=== PATIENT | male | born 1955 | race Caucasian/White ===

== ENCOUNTER → 2024-06-23 09:02 | Outpatient (REF) | payer BC, SELFPAY ==
[2024-06-23 09:59] LABS: % Basophils 0.4 % (0-2); % Eosinophils 3.6 % (0-6); % Immature Granulocytes 1.5 % (0-0.5); % Lymphocytes 19.3 % (20.5-51.1); % Monocytes 8.9 % (1.7-9.3); % Neutrophils 66.3 % (42.2-75.2); Absolute Eosinophils 0.3 10^3/uL (0-0.7); Absolute Immature Granulocytes 0.1 10^3/uL (0-0.05); Absolute Lymphocytes 1.3 10^3/uL (1.2-3.4); Absolute Monocytes 0.6 10^3/uL (0.1-0.6); Absolute Neutrophils 4.5 10^3/uL (1.4-6.5); Hematocrit 44.3 % (39.0-52.0); Hemoglobin 15.3 g/dL (13.0-18.0); Mean Corp Hgb Conc. 34.5 g/dL (33.0-37.0); Mean Corpuscular Hgb 30.5 pg (27.0-31.0); Mean Corpuscular Volume 88.2 fL (80.0-94.0); Mean Platelet Volume 9.8 fL (7.4-10.4); Nucleated Red Blood Cells % 0 % (-); Platelet Count 258 10^3/uL (130-400); Red Blood Cell Count 5.02 10^6/uL (4.70-6.10); White Blood Cell Count 6.9 10^3/uL (4.8-10.8)
[2024-06-23 10:38] LABS: Blood Urea Nitrogen 20 mg/dl (9-20); Calcium 9.1 mg/dl (8.4-10.2); Carbon Dioxide 30 mmol/L (22-30); Chloride 97 mmol/L (98-107); Glucose 100 mg/dl (70-99); Potassium 4.7 mmol/L (3.5-5.1); Sodium 137 mmol/L (135-145); eGFR > 60.00
== END ==
LOC: RCS 09:02
PROVIDERS: ATTENDING PHYSICIAN Orthopaedic Surgery Hand Surgery; FAMILY PHYSICIAN Family Medicine
DX: Z01.818 Encounter for other preprocedural examination (principal)
CPT/HCPCS: 36415; 80048; 85025; 93005

== ENCOUNTER 2024-07-30 21:15 | Inpatient (IN) | payer OTHER, SELFPAY ==
[2024-07-30 16:42] VITALS: BP 138/81
[2024-07-30 17:14] LABS: % Basophils 0.3 % (0-2); % Eosinophils 3.5 % (0-6); % Immature Granulocytes 0.6 % (0-0.5); % Lymphocytes 14.1 % (20.5-51.1); % Monocytes 8.4 % (1.7-9.3); % Neutrophils 73.1 % (42.2-75.2); Absolute Eosinophils 0.3 10^3/uL (0-0.7); Absolute Immature Granulocytes 0.1 10^3/uL (0-0.05); Absolute Lymphocytes 1.2 10^3/uL (1.2-3.4); Absolute Monocytes 0.7 10^3/uL (0.1-0.6); Absolute Neutrophils 6.4 10^3/uL (1.4-6.5); Hematocrit 41.8 % (39.0-52.0); Hemoglobin 14.8 g/dL (13.0-18.0); Mean Corp Hgb Conc. 35.4 g/dL (33.0-37.0); Mean Corpuscular Hgb 29.3 pg (27.0-31.0); Mean Corpuscular Volume 82.8 fL (80.0-94.0); Mean Platelet Volume 9.8 fL (7.4-10.4); Nucleated Red Blood Cells % 0 % (-); Platelet Count 281 10^3/uL (130-400); Red Blood Cell Count 5.05 10^6/uL (4.70-6.10); Red Cell Dist. Width 12.9 % (11.5-14.5); White Blood Cell Count 8.7 10^3/uL (4.8-10.8)
[2024-07-30 17:17] LABS: ALT (SGPT) 25 U/L (0-50); AST (SGOT) 26 U/L (17-59); Albumin 4.5 g/dl (3.5-5.0); Alkaline Phosphatase 85 U/L (38-126); Blood Urea Nitrogen 20 mg/dl (9-20); Calcium 9.8 mg/dl (8.4-10.2); Carbon Dioxide 30 mmol/L (22-30); Chloride 97 mmol/L (98-107); Glucose 94 mg/dl (70-99); Potassium 4.3 mmol/L (3.5-5.1); Sodium 138 mmol/L (135-145); Total Bilirubin 1.5 mg/dl (0.2-1.3); Total Protein 6.7 g/dl (6.3-8.2); eGFR > 60.00
[2024-07-30 18:04] LABS: Urine Albumin 3+ (Neg - Trace); Urine Bilirubin Negative (Negative); Urine Character Bloody (Clear); Urine Color Red; Urine Glucose Negative (Negative); Urine Ketone Trace (Negative); Urine Leukocyte Negative (Negative); Urine Nitrite Negative (Negative); Urine Occult Blood 4+ (Negative); Urine Urobilinogen Negative (Neg - 1+); Urine pH 6.5 (5.0-9.0)
[2024-07-30 18:11] LABS: Urine Red Blood Cell >100 /HPF (0-2)
--- NOTE | 2024-07-30 18:35 | ED.GENMED ---
History of Present Illness
General
Chief Complaint: Male Genito-Urinary Symptoms
Source: patient
Exam Limitations: none
Time Seen by Provider: 07/30/24 17:54
History of Present Illness
History of Present Illness:
This is a 69 year old male that comes in with c/o blood in his urine. States that this just started a couple of hour ago. States that he has right rotator cuff surgery and just started back on his Xarelto on the as he has atrial fib. Denies
any fever, chills, chest pain, SOB, abd pain, nausea, vomiting, diarrhea, headache, dizziness, urinary burning or frequency.
Past History
Past History
ED Past Medical History: Arrthythmia (Atrial fib), CHF, GERD, HTN, Hypercholesterolemia and Other (Back and neck pain, Sleep apnea, Diverticulosis, )
ED Past Surgical History: Cardiac (Ablation for atrial fibrillation 2010, Heart surgery) and Orthopedic (Carpal tunnel, Ulner nerve left shoulder, Right shoulder rotator cuff)
Patient has exhibited threatening behavior?: No
PSI?: No
Social History
Tobacco: Non-smoker
Alcohol: Occasional
Personal:
Living: with family
Family History
Family History: Other (Father with A. fib and pacemaker, mother with hypertension, sister with diabetes)
Review of Systems
Review of Systems
All Other Systems: ROS reviewed and negative except as documented in HPI and ROS
Constitutional: Reports no symptoms; Denies fever or chills
EENT: Reports no symptoms
Respiratory: Reports no symptoms; Denies cough or trouble breathing
Cardiac: Reports no symptoms; Denies chest pain
ABD/GI: Reports no symptoms; Denies abdominal pain, nausea, vomiting or diarrhea
: Reports bleeding (in urine); Denies dysuria, frequency or urgency
Musculoskeletal: Reports no symptoms
Skin: Reports no symptoms
Neurological: Reports no symptoms; Denies dizzy or headache
Psychiatric: Reports no symptoms
Phy Exam
General Physical Exam
General Presentation: well appearing
General age: appears stated age
General Skin: warm and dry
General Habitus: normal
General Mental: alert
General Hydration: appears well hydrated
Course
Orders/Labs/Results
Orders:
Orders
07/30/24 Breakfast
Cholesterol Lowering
At Your Request: Full Participation
Does patient need a safe tray?: No
Cholesterol Lowering: Sodium, 2 Gram
07/30/24 16:51
Complete Blood Count/With Diff Urgent
Comprehensive Metabolic Panel Urgent
Urine Culture Reflexed from UA [Urinalysis Reflex To Culture] Urgent
Date Specimen was Collected: 07/30/24
Time Specimen was Collected: 16:45
Urine Microscopic Reflex Cult Urgent
07/30/24 19:25
0.9% Sodium Chloride 500 ml [Nss] 500 ml IV BOLUS
07/30/24 19:53
Pleitez Placement- Treatment ONCE
Reason for insertion: Acute Retention
07/30/24 20:44
Admit/Transfer Patient As Directed
Co-Sign Provider:
Level of Care: Inpatient admission
Assign to:: Telemetry
Physician / Group: [email or web address]
Diagnosis: Acute hematuria due Xarelto for Prx AF
Reason for Telemetry: Arrhythmia
Date to Stop Telemetry: 08/02/24
Time to Stop Telemetry: 11:00
Reason for Hospitalization: Acute hematuria due Xarelto for Prx AF
Expected length of stay greater than two midnights?: Yes
ELOS- Estimated Length of Stay in days: 3
I certify the patient meets the requirements for IP care: Yes
07/30/24 20:45
Code Status As Directed
Resuscitation Status: Full Code
07/30/24 21:31
PTT Urgent
07/30/24 21:50
Acetaminophen [Tylenol] 650 mg PO Q4HPRN PRN
Bisacodyl [Dulcolax] 10 mg RECTAL [id number] PRN
Docusate W/Senna [Senokot-S] 1 tablet PO BIDPRN PRN
HYDROmorphone [Dilaudid] 0.25 mg IV Q3HPRN PRN
Polyethylene Glycol Powder [Miralax] 17 grams PO DAILYPRN PRN
07/30/24 21:50
CARDIOLOGY CONSULT Routine
Consulting Provider: Juan Carlos Jeter
Was physician already notified: Yes
Reason for consult: Acute hematuria due Xarelto for Prx AF , Holding xarelto
Activity As Directed
Activity Level: With Assistance
Intake/ Output As Directed
Frequency: Per unit guidelines
Pneumatic Compression Sleeves As Directed
Type: Knee high
Vital Signs As Directed
Frequency: Per unit guidelines
DX Deep Vein Thrombosis Video Routine
07/30/24 22:00
Atorvastatin [Lipitor] 40 mg PO HS
Flush (0.9% Sodium Chloride) [Flush (Nss)] See Dose Instructions IV PER PROTOCOL
07/31/24 06:53
Basic Metabolic Panel IN AM
Complete Blood Count/No Diff IN AM
07/31/24 08:00
Amlodipine [Norvasc] 5 mg PO DAILY
Furosemide [Lasix] 40 mg PO BID AT 0800,1600
Metoprolol Xl [Toprol Xl] 25 mg PO BID
08/02/24 11:00
DC Protocol for Telemetry ONCE
Abnormal Lab Results
07/30/24
16:51
Abs Immat Gran (auto) 0.1 H 10^3/uL
(0-0.05)
Absolute Monos (auto) 0.7 H 10^3/uL
(0.1-0.6)
Immature Gran % 0.6 H %
(0-0.5)
Lymphocytes % 14.1 L %
(20.5-51.1)
Chloride 97 L mmol/L
(98-107)
Total Bilirubin 1.5 H mg/dl
(0.2-1.3)
Urine Ketones Trace A
(Negative)
Ur Occult Blood Reflex 4+ A
(Negative)
Urine RBC >100 A /HPF
(0-2)
Urine Albumin (Reflex) 3+ A
(Neg - Trace)
07/30/24 16:51
07/30/24 16:51
Total murtaza slightly elevated. Urine negative for infection but positive for blood
Vital Signs
Initial and Last Documented VS:
Initial Vital Signs
Temp Pulse Resp BP Pulse Ox
98.3 F 94 20 138/81 98
07/30/24 16:42 07/30/24 16:42 07/30/24 16:42 07/30/24 16:42 07/30/24 16:42
Last Documented Vital Signs
Temp Pulse Resp BP Pulse Ox
98.7 F 80 18 141/69 97
08/01/24 15:00 08/01/24 15:00 08/01/24 15:00 08/01/24 15:20 08/01/24 15:00
MDM/Problems Addressed
Differential Diagnosis Includes:
Hematuria
MDM/Problems Addressed:
This is a 69 year old male that comes in with c/o hematuria. States that this just started a couple of hours ago. Patient has no complaints
Will get labs, check urine and will speak with Transformation Analyst to see if patient can hold is Xaralto and restart tomorrow
Spoke with Dr. Jeter and patient can hole his Xarelto for a couple of days. Back into see patient. Patient again urinated and it was bright red blood. States that this time he felt like he did not empty his bladder. Will bladder scan and if
needed place a Three way catheter.
Into see patient. Patient had 350ml in the bladder. Patient was unable to urinate and states that he is feeling pressure know. Will place a 3 way pleitez catheter and bladder irrigations. Will admit.
Chronic conditions affecting care: Arrhythmia (Atrial fib on Xarelto)
Acute Exacerbation and/or Progression of Chronic Illness: Arrhythmia (Atrial fib on Xarelto)
*Pulse Oximetry
Patient hypoxic: no
*EKG
Interpreted by ED Provider?: NA
Rate: EKG- N/A
*Inking Machine Tender Interpretation
Rate: Inking Machine Tender- N/A
*Critical Care Note
Total Time (30-74mins, 75-104mins- exclusive of procedures): Not Applicable
ED Attending Note
-
Portions of this chart may have been created with voice recognition software.� Occasional wrong word or��sound alike� substitutions may have occurred due to the inherent limitations of voice recognition software.
Discharge Plan
Departure
Patient Disposition: Admit
Date of Disposition: 07/30/24
Time of Disposition: 19:57
Admit to: Med/Surg
Presentation/result/management discussed w/ accepting MD/DO: Hospitalist
Patient with high blood pressure during this ER visit?: Yes
Condition: Good
Covid-19: Not Applicable
Discharge Problem:
Hematuria
Interventions
Interventions:
*Risk Screen - Suicide Last Done: 07/30/24 16:42
*General Assessment Last Done: 07/30/24 16:42
*Neglect/Abuse Screening Last Done: 07/30/24 16:42
*ED COVID-19 Vaccine History Last Done: 07/30/24 22:41
*Nursing Disposition Last Done: 07/30/24 21:53
ED-Male Genitourinary Assessment Last Done: 07/30/24 18:52
Discharge Date and Time
Discharge Date/Time: 07/30/24 21:53
[2024-07-30] MEDS: NSS 500 IV (19:48)
[2024-07-30 20:29] VITALS: BP 117/85
--- NOTE | 2024-07-30 20:41 | HPS.HSE ---
Family Physician
-
Family Physician: Sal Kaplan
Chief Complaint
-
blood in the urine
History of Present Illness
69M HX Xarelto for Prx AF ,on ASA pw acute onset of blood in the urine just started a couple of hour ago.
S/p recent right rotator cuff surgery and just started back on his Xarelto on the
ROS:
Denies any fever, chills, chest pain, SOB, abd pain, nausea, vomiting, diarrhea, headache, dizziness, urinary burning or frequency.
Medical History
Past Medical History
Past Medical History: Reports Other
Additional Past Medical History:
Arrhythmia (Atrial fib), CHF, GERD, HTN, Hypercholesterolemia and Other (Back and neck pain, Sleep apnea, Diverticulosis,
Past Surgical History: Reports Other
Additional Past Surgical History:
Cardiac (Ablation for atrial fibrillation 2010, Heart surgery) and Orthopedic (Carpal tunnel, Ulner nerve left shoulder, Right shoulder rotator cuff)
Social History
Tobacco: Non-smoker
Drug: None
Family History
Family History: Not pertinent
Allergies / Home Medications
Allergies reflects when Allergies were last updated in [facility].
Home Medications with original date entered in [facility]
Allergy/Medication List:
Allergies
Allergy/AdvReac Type Severity Reaction Status Date / Time
lisinopril Allergy Severe angioedema Verified 07/30/24 16:42
and
anaphylaxis
Penicillins Allergy Severe Hives Verified 07/30/24 16:42
Home Medications
furosemide 40 mg tablet 40 mg PO BID Fluid retention/Swelling 10/04/20
amlodipine 5 mg tablet (Norvasc) 5 mg PO DAILY Blood pressure 01/04/22
atorvastatin 40 mg tablet (Lipitor) 40 mg PO HS High cholesterol 01/04/22
metoprolol succinate 25 mg tablet,extended release 24 hr 25 mg PO BID 07/19/22
rivaroxaban 20 mg tablet (Xarelto) 20 mg PO HS 07/30/24
Review of Systems
-
Constitutional: Reports See HPI
EENT: Reports No Symptoms
Respiratory: Reports No Symptoms
Cardiac: Reports No Symptoms
Abdomen/GI: Reports No Symptoms
: Reports See HPI and Bleeding
Musculoskeletal: Reports No Symptoms
Skin: Reports No Symptoms
Neurological: Reports No Symptoms
Endocrine: Reports No Symptoms
Hematologic/Lymphatic: Reports No Symptoms
Psych: Reports No Symptoms
Physical Exam
Vital Signs
Vital Signs
Temp Pulse Resp BP Pulse Ox
98.3 F 83 18 117/85 98
07/30/24 16:42 07/30/24 20:29 07/30/24 20:29 07/30/24 20:29 07/30/24 20:29
Physical Exam
General: Well Developed, Well Nourished and No Apparent Distress
HEENT: NormoCephalic, Moist mucous membranes and Atraumatic
Respiratory: Clear
Cardiac: S1/S2 and Regular Rhythm; No Murmur or Rub
GI: Soft, Non Tender, Non Distended and Normal Bowel Sounds; No Organomegaly
Rectal: Deferred by Provider
Genito-urinary: Bloody Urine (drining thru CBI to gravity drainage )
Musculoskeletal: No Clubbing, No Cyanosis and No Edema
Skin: No Rash
Neuro: Nonfocal/grossly intact
Laboratory Results
-
07/30/24 16:51
07/30/24 16:51
Laboratory Results
Total Bilirubin 1.5 mg/dl (0.2-1.3) H 07/30/24 16:51
AST 26 U/L (17-59) 07/30/24 16:51
ALT 25 U/L (0-50) 07/30/24 16:51
Alkaline Phosphatase 85 U/L (38-126) 07/30/24 16:51
Impression/Plan
-
Reviewed VS: stable
Data
Unremarkable CBC
Unremarkable CMP
TB 1.5
Last hospitalist admission: 10/04/20 - 10/05/20 DXS:
1. Presyncopal episodes.
2. Paroxysmal atrial fibrillation.
3. Anticoagulation with Eliquis.
4. Possible metabolic alkalosis secondary to mild dehydration.
5. Chronic lacunar infarct by imaging.
6. Essential hypertension.
7. Chronic compensated diastolic heart failure with preservedejection
ASSESSMENT & PLAN
Acute bloody hematuria due Xarelto for Prx AF
- recently xarelto on hold and resumed as of 07/16/24
- To hold xarelto and ASA for now
- cont 3 way CBI to gravity
- Uro consult
Paroxysmal atrial fibrillation on chronic anticoagulation via Xarelto
[id number] VASc 4.
HX status post ablation in July 2020
- To hold xarelto for now due to acute hematuria
- Metoprolol succinate
- DCA card consulted by ER
Chronic compensated HF preserved LVEF f 55-60% by TTE in May 2020; stable.
- cont STRATEGIC MARKETING SPECIALIST PO Frusemide and Metoprolol succinate
HLD:
- on Lipitor
Essential hypertension; chronic, stable.
- cont. Amlodipine and metoprolol sux
Obesity due to excess calories.
History of CVA by imaging: Chronic lacunar infarct
DVT Px: SCD
Code: Full
IP TLM
[2024-07-30 21:37] VITALS: BP 139/95
--- NOTE | 2024-07-30 21:51 | EDRN ---
at time of transfer to floor, 1500mls of CBI infused and 2600 total mls emptied from pleitez
[2024-07-30 21:52] LABS: APTT 31.4 Sec (23.4-35.0)
[2024-07-30 22:03] VITALS: BP 137/84; BMI 31.8
[2024-07-30] MEDS: DILAUDID 0.25 MG IV (22:23)
[2024-07-30] MEDS: LIPITOR 40 MG PO (22:37)
[2024-07-30 22:58] VITALS: BMI 31.8
[2024-07-30 23:25] VITALS: BP 140/87
[2024-07-31] VITALS (7 sets, daily range): BP systolic 110–127; BP diastolic 73–85; BMI 31.8
[2024-07-31] MEDS: DILAUDID 0.25 MG IV ×3 (01:44→04:51)
--- NOTE | 2024-07-31 06:50 | PTCARENOTE ---
Pt admitted from ED, AAOx3. Pt with persistent R flank pain and intermittent bladder pressure, COMMERCIAL JOURNEYMAN ELECTRICIAN aware. CBI infusing upon arrival to unit, draining bloody urine throughout the night. Pt afebrile, VSS. Dilaudid x 3 given for pain with slight
pain relief noted. SCD in place. Awaiting further plan.
--- NOTE | 2024-07-31 08:05 | W.PN.HOSP.TC ---
Today's Communication/Plan
-
see bold
Assessment / Plan
Assessment / Plan
HPI: 69M HX Xarelto for Prx AF ,on ASA pw acute onset of blood in the urine just started a couple of hour ago.
S/p recent right rotator cuff surgery and just started back on his Xarelto on the
#Acute hematuria
Appreciate urology input, hold Xarelto, continue CBI
For CT Urogram today
#Persistent atrial fibrillation
Appreciate cardiology input, continue metoprolol succinate for rate control
Hold Xarelto due to hematuria, resume when cleared by urology
#Benign essential hypertension
Continue amlodipine 5 mg daily, metoprolol succinate, Lasix
#Chronic heart failure with a preserved ejection fraction
Continue Lasix
#Hyperlipidemia
Continue statin
#Recent right shoulder replacement
Pain meds, outpatient follow-up with Ortho
#Right mid back pain
Suspect musculoskeletal
Lidocaine patch, Tylenol as needed
#Hyperlipidemia
Continue statin
DVT prophylaxis�SCDs secondary to hematuria
Full code
Total time spent to see the patient on the floor, examine the patient, review data and lab results, discuss treatment plan with patient, nursing staff around 51 minutes.
Physical Exam
General: No acute distress
HEENT: Normocephalic, Atraumatic, EOMI, MMM
Respiratory: Clear to Auscultation bilaterally
Cardiac: Normal S1/S2, irregularly irregular
GI: Soft, Nontender, Nondistended, Normal Bowel Sounds
Extremities: No Clubbing, Cyanosis, or Edema
Neuro: Nonfocal/Grossly Intact
Msk: Right mid paravertebral muscles are tense
Anticipated Discharge: > 48 hours
Subjective/Interval History
-
Date of Service: July 31, 2024
Patient denies dysuria. He does complain of right shoulder and right mid back pain. No fever, no vomiting.
Objective Data
-
Labs:
Laboratory Results
07/30/24 07/31/24
21:31 06:53
WBC Pending
Hgb Pending
Hct Pending
Plt Count Pending
APTT 31.4
Sodium Pending
Potassium Pending
Chloride Pending
Carbon Dioxide Pending
BUN Pending
Creatinine Pending
Glucose Pending
Calcium Pending
Vital Signs:
Vital Signs
Temp Pulse Resp BP Pulse Ox
98.2 F 97 17 119/76 95
07/31/24 03:52 07/31/24 03:52 07/31/24 03:52 07/31/24 03:52 07/31/24 03:52
I&O
07/30/24 07/31/24 08/01/24
06:59 06:59 06:59
Intake Total 960 / 960
Output Total 1625 / 1625
Balance -1625 / -665 960 / 960
[2024-07-31] MEDS: TOPROL XL 25 MG PO ×2 (08:15→20:10)
[2024-07-31] MEDS: LASIX 40 MG PO ×2 (08:15→15:40)
[2024-07-31] MEDS: NORVASC 5 MG PO (08:15)
[2024-07-31] MEDS: TYLENOL 650 MG PO (08:17)
[2024-07-31 08:23] LABS: Hematocrit 40.1 % (39.0-52.0); Mean Corp Hgb Conc. 34.9 g/dL (33.0-37.0); Mean Corpuscular Volume 86.1 fL (80.0-94.0); Platelet Count 240 10^3/uL (130-400); Red Blood Cell Count 4.66 10^6/uL (4.70-6.10); Red Cell Dist. Width 12.8 % (11.5-14.5); White Blood Cell Count 10.3 10^3/uL (4.8-10.8)
[2024-07-31 08:45] LABS: Blood Urea Nitrogen 20 mg/dl (9-20); Calcium 9.3 mg/dl (8.4-10.2); Carbon Dioxide 25 mmol/L (22-30); Chloride 98 mmol/L (98-107); Estimated Creatinine Clearance 93 ml/min; Glucose 93 mg/dl (70-99); Potassium 4.4 mmol/L (3.5-5.1); Sodium 137 mmol/L (135-145); eGFR > 60.00
--- NOTE | 2024-07-31 11:15 | CON.CAR ---
Addendum entered and electronically signed by Zack Palmer MD 07/31/24 13:37:
Agree with OFE H and P as well as assessment and plan
Discussed with daughter at bedside
Most reasonable to hold DOAC until further evaluation by primary service and urology.
No role for asa even while off DOAC
If/when it is felt to be reasonably safe to resume DOAC, would resume.
Long-term rhythm control options have been discussed as outpatient and include antiarrhythmic drug therapy with dofetilide but this would need to wait until he can be on uninterrupted DOAC for a minimum of 4 weeks
Not adding much else from a cardiac standpoint so will sign off, please call us back if needed.
Original Note:
Consultation
Consultation Request
Date/Time Consultation Requested: 07/30/24 at 2150
Date/Time Consultation Performed: 07/31/24 at 1150
Requesting Provider: Dr. Jaimes
Performing Provider: Dr. Maeve Palmer
Reason for Consultation: Hematuria
Medical History
-
History of Present Illness:
Patient came to ER last night with new hematuria and was originally planned for discharge from the ER, but with ongoing hematuria was admitted overnight with consultation to cardiology. Patient had shoulder surgery, arthroscopy, 07/15/2024 and
was able to hold his Xarelto without adverse event. He resumed Xarelto on 07/16/2024. Hematuria started the night of admission and there is no history of hematuria or bladder problems. Hemoglobin has been stable at 14. No pain with urination.
Patient was started on CBI with improvement of hematuria, but continues with fruit punch colored urine. Patient has persistent atrial fibrillation. He previously had PVI 2011, PVI 2019 and convergent maze procedure 2021. Prior to that in 2011
there was an attempt to load him with Tikosyn, but ultimately the medication was stopped prior to discharge due to QT prolongation despite decreasing doses. After that he was eventually started on sotalol in 2020, but it was eventually stopped due
to ineffectiveness leading to the eventual convergent maze procedure. He has been in persistent atrial fibrillation for months and the plan at his last office visit with Dr. Castro on 07/12/2024 was 2 be seen in the office again on 08/17/2024 and
discuss another attempt at Tikosyn loading at that time. Patient denies palpitations.
PMH:
Chronic Xarelto therapy
s/p right shoulder arthroscopy 07/15/24
Persistent Afib
s/p PVI 2011
s/p PVI 2019
s/p Convergent MAZE 2021
previously attempted to load with Tikosyn, but stopped due to QT prolongation 08/2012
previously treated with sotalol, but stopped due to ineffectiveness
HTN
Chronic HFpEF
HLD
Mild to mod MR by echo 11/14/23
HYUN-uses CPAP
Past Medical History
Past Medical History: Other (in HPI)
Past Surgical History: Cardiac (PVI 2011, 2019, Convergent MAZE 2021)
Social History
Tobacco: Non-Smoker
Alcohol: Occasional
Drug: None
Personal:
Living: With Family
Family History
Family History: Diabetes, Hypertension and Other (CVA)
Allergies / Home Medications
Allergy/AdvReac Type Severity Reaction Status Date / Time
lisinopril Allergy Severe angioedema Verified 07/30/24 16:42
and
anaphylaxis
Penicillins Allergy Severe Hives Verified 07/30/24 16:42
�Medication �Instructions �Recorded �Confirmed �Type
furosemide 40 mg tablet 40 mg PO BID Fluid 10/04/20 07/30/24 History
retention/Swelling
amlodipine 5 mg tablet (Norvasc) 5 mg PO DAILY Blood pressure 01/04/22 07/30/24 History
atorvastatin 40 mg tablet (Lipitor) 40 mg PO HS High cholesterol 01/04/22 07/30/24 History
metoprolol succinate 25 mg 25 mg PO BID 07/19/22 07/30/24 History
tablet,extended release 24 hr
rivaroxaban 20 mg tablet (Xarelto) 20 mg PO HS 07/30/24 07/30/24 History
Review of Systems
-
History Source: Patient and Family ()
All other systems: Negative unless noted
Physical Exam
Vital Signs
Temp Pulse Resp BP Pulse Ox
98 F 100 16 119/85 96
07/31/24 07:00 07/31/24 07:00 07/31/24 07:00 07/31/24 07:00 07/31/24 07:00
GEN: NAD. AAOx3
HEENT: MMM
LUNGS: No audible wheeze
CV: Afib on tele, no murmur
ABD: soft, BS+, NT, ND
EXT: No clubbing, cyanosis, lesions or edema B/L
NEURO: Gross non-focal
SKIN: Warm, dry and pink. No rash
: +Herrera catheter draining fruit punch colored urine
Lab Results
07/31/24 06:53
07/31/24 06:53
Impression / Plan
-
PCP: Sal Kaplan
Cardio: Dr. Torsten La
Impression:
Hematuria
Chronic Xarelto therapy
s/p right shoulder arthroscopy 07/15/24
Persistent Afib
s/p PVI 2011
s/p PVI 2019
s/p Convergent MAZE 2021
previously attempted to load with Tikosyn, but stopped due to QT prolongation 08/2012
previously treated with sotalol, but stopped due to ineffectiveness
HTN
Chronic HFpEF
HLD
Mild to mod MR by echo 11/14/23
HYUN-uses CPAP
Echo 05/09/2020: normal LV size and function. EF at 55-60%. No WMA. Mild LVH. Mild MR.
Echo 11/14/23: EF 60%, mild to moderate MR, normal aortic valve, dilated RV with preserved systolic function, ascending aorta 4.0 to 4.2 cm
Plan:
-Patient came to ER last night with new hematuria and was originally planned for discharge from the ER, but with ongoing hematuria was admitted overnight with consultation to cardiology. Patient had shoulder surgery, arthroscopy, 07/15/2024 and
was able to hold his Xarelto without adverse event. He resumed Xarelto on 07/16/2024. Hematuria started the night of admission and there is no history of hematuria or bladder problems. Hemoglobin has been stable at 14. No pain with urination.
Patient was started on CBI with improvement of hematuria, but continues with fruit punch colored urine. Patient has persistent atrial fibrillation. He previously had PVI 2011, PVI 2019 and convergent maze procedure 2021. Prior to that in 2011
there was an attempt to load him with Tikosyn, but ultimately the medication was stopped prior to discharge due to QT prolongation despite decreasing doses. After that he was eventually started on sotalol in 2020, but it was eventually stopped due
to ineffectiveness leading to the eventual convergent maze procedure. He has been in persistent atrial fibrillation for months and the plan at his last office visit with Dr. Castro on 07/12/2024 was 2 be seen in the office again on 08/17/2024 and
discuss another attempt at Tikosyn loading at that time. Patient denies palpitations.
-Continues with hematuria, but color has improved to fruit punch color and Hgb stable at 14.
-Xarelto can be held. Would like to resume Xarelto once hematuria has subsided.
-Tele reviewed by me and patient remains in rate controlled atrial fibrillation which is persistent at this point. As noted above he has had previous ablations and previous attempts at AAD.
-Most recently there has been consideration to trial Tikosyn loading again, talked with patient and that patient would need 4 weeks of uninterrupted OAC prior to scheduling Tikosyn loading.
-No ECG checked on admission, ECG ordered by me.
-Patient is already scheduled to see Dr. La in the office 08/17/24.
--- NOTE | 2024-07-31 12:17 | CONS.URO ---
Consultation
-
Date/Time Consultation Performed: 07/31/24
Requesting Provider: Do
Performing Provider: Deisi
Reason for Consultation: gross hematuria
Medical History
History of Present Illness
69M presents to ED w/ acute onset of gross hematuria starting few hrs prior.
s/p recent right rotator cuff surgery in 07/2024 - restarted Xarelto on 07/16/24.
Denies prior episodes of hematuria.
Denies dysuria.
Denies F/C/N/V, frequency, urgency, incontinence.
Denies tobacco history.
Denies family h/o urologic malignancies.
PSA 1.1 from 03/2024.
Past Medical History
Past Medical History: CHF, GERD, HTN, Hypercholesterolemia and Other (neck/lower back pain, sleep apnea, diverticulosis)
Past Surgical History: Cardiac (cardiac ablation 2010, heart surgery) and Orthopedic (carpal tunnel, ulnar nerve left shoulder, right shoulder rotator cuff)
Social History
Tobacco: Non-smoker
Alcohol: Occasional
Drug: None
Personal:
Living: With Family
Employment: Retired
Family History
Family History: Reviewed & Not Pertinent
Allergies/Home Medications
Allergies
Allergy/AdvReac Type Severity Reaction Status Date / Time
lisinopril Allergy Severe angioedema Verified 07/30/24 16:42
and
anaphylaxis
Penicillins Allergy Severe Hives Verified 07/30/24 16:42
Home Medications
�Medication �Instructions �Recorded �Confirmed �Type
furosemide 40 mg tablet 40 mg PO BID Fluid 10/04/20 07/30/24 History
retention/Swelling
amlodipine 5 mg tablet (Norvasc) 5 mg PO DAILY Blood pressure 01/04/22 07/30/24 History
atorvastatin 40 mg tablet (Lipitor) 40 mg PO HS High cholesterol 01/04/22 07/30/24 History
metoprolol succinate 25 mg 25 mg PO BID 07/19/22 07/30/24 History
tablet,extended release 24 hr
rivaroxaban 20 mg tablet (Xarelto) 20 mg PO HS 07/30/24 07/30/24 History
Review of Systems
-
History Source: Patient
A 12 point Review of Systems was completed except as noted: Yes
Constitutional: Reports No Symptoms
EENT: Reports No Symptoms
Respiratory: Reports No Symptoms
Cardiac: Reports No Symptoms
Abdomen/GI: Reports No Symptoms
: Reports Bleeding and Herrera
Musculoskeletal: Reports No Symptoms
Skin: Reports No Symptoms
Neurological: Reports No Symptoms
Endocrine: Reports No Symptoms
Hematologic/Lymphatic: Reports No Symptoms
Psych: Reports No Symptoms
Physical Exam
Vital Signs
Vital Signs
Temp Pulse Resp BP Pulse Ox
98 F 100 16 119/85 96
07/31/24 07:00 07/31/24 07:00 07/31/24 07:00 07/31/24 07:00 07/31/24 07:00
Lab / Testing Results
Laboratory Results
07/31/24 06:53
07/31/24 06:53
Physical Exam
General: Well Developed, Well Nourished, No Apparent Distress and Comfortable
HEENT: Normocephalic and Anicteric
Respiratory: Non Labored Respirations
Cardiac: S1/S2
Breast: N/A
GI: Soft, Non Tender and Non Distended
Rectal: Deferred by Provider
Genito-urinary: No Costovertebral Tend
Musculoskeletal: No Edema
Skin: Warm and Dry
Neuro: AO x 3, No Motor Deficits and Nonfocal/Grossly Intact
Hematologic/Lymphatic: No Lymphadenopathy
Psych: Calm and Intact Judgement
Assessment / Plan
-
Gross hematuria
H/H stable
Cr WNL
UA grossly positive for hematuria, no evidence of UTI
Discussed new onset hematuria in setting of chronic anticoagulation for afib - restarted Xarelto 2 weeks prior to onset of hematuria, however no prior episodes of hematuria noted.
Discussed obtaining CT Urogram inpatient to evaluate upper and lower urinary tracts for obstructive uropathy, renal/ureteral/bladder pathology, and clot burden.
3-way catheter draining well w/ punch-colored urine on medium CBI w/o obstructing clots.
- Continue CBI aggressively to keep urine light-colored and clot-free
- Hold Xarelto
- CT Urogram ordered
- NPO@[place] in case cysto/clot evacuation/fulguration required tomorrow
Discussed plan of care extensively w/ patient and spouse >55 min.
D/w Hospitalist.
Data Reviewed
-
Total Time Spent with Patient (in minutes): 55
Lab Data: Labs Reviewed, Discussed with Physician, Discussed with Patient and Discussed with Family
Old Records: Reviewed
[2024-07-31] MEDS: LIDOCAINE 4% PATCH 1 PATCH TOPICAL (14:39)
[2024-07-31] MEDS: ROXICODONE 5 MG PO (14:40)
--- NOTE | 2024-07-31 16:51 | CM ---
Alert awake oriented patient who lives with his Cielo who lives in a 1 story home with 3 step to enter and bed and bathroom on first floor. He is independent in drivig and all activities of daily living.Offered Vn he declined need.
[facility] hx /No SNF hx
CPAP with Carlie
Pharmacy [facility]
PCP DR Sauceda
PLAN Home no anticipated needs
[2024-07-31] MEDS: ROXICODONE 10 MG PO (18:42)
--- NOTE | 2024-07-31 20:15 | W.PN.UPDATE ---
Update Note
Progress Note Update
CT Urogram reviewed w/ patient this late afternoon.
8 cm clot burden w/n bladder, Herrera balloon in place, enlarged prostate gland.
Right hydroureteronephrosis down to proximal right ureter w/ intermediate density >4 cm collecting system mass - suspicious for upper tract urothelial carcinoma.
Plan:
- Hold Xarelto (indefinitely for now given severity of bleeding)
- Continue CBI to keep urine clot-free and light pink/clear
- NPO@MN
- To OR tomorrow for cysto/clot resection and evacuation/fulguration
- Trend H/H
D/w patient.
[2024-07-31] MEDS: LIPITOR 40 MG PO (21:04)
[2024-08-01] VITALS (9 sets, daily range): BP systolic 104–149; BP diastolic 67–93; BMI 31.0
--- NOTE | 2024-08-01 07:17 | W.PN.HOSP.TC ---
Today's Communication/Plan
-
For OR today for cysto/clot resection and evacuation/fulguration
Assessment / Plan
Assessment / Plan
HPI: 69M HX Xarelto for Prx AF ,on ASA pw acute onset of blood in the urine just started a couple of hour ago.
S/p recent right rotator cuff surgery and just started back on his Xarelto on the
#Acute hematuria
#Right renal pelvis density
Appreciate urology input, hold Xarelto, continue CBI
CT Urogram shows 4.5 cm right renal pelvis density, suspicious for tumor
For OR today for cysto/clot resection and evacuation/fulguration
Trend hemoglobin
#Persistent atrial fibrillation
Appreciate cardiology input, continue metoprolol succinate for rate control
Hold Xarelto due to hematuria, resume when cleared by urology
#Benign essential hypertension
Continue amlodipine 5 mg daily, metoprolol succinate, Lasix
#Chronic heart failure with a preserved ejection fraction
Continue Lasix
#Hyperlipidemia
Continue statin
#Recent right shoulder replacement
Pain meds, outpatient follow-up with Ortho
#Right mid back pain
#Right kidney pain
Likely from the right hydronephrosis and mild right perinephric edema from the tumor
Lidocaine patch, pain meds, Tylenol as needed
#Hyperlipidemia
Continue statin
DVT prophylaxis�SCDs secondary to hematuria
Full code
Total time spent to see the patient on the floor, examine the patient, review data and lab results, discuss treatment plan with patient, nursing staff around 50 minutes.
Physical Exam
General: No acute distress
HEENT: Normocephalic, Atraumatic, EOMI, MMM
Respiratory: Clear to Auscultation bilaterally
Cardiac: Normal S1/S2, irregularly irregular
GI: Soft, Nontender, Nondistended, Normal Bowel Sounds
Extremities: No Clubbing, Cyanosis, or Edema
Neuro: Nonfocal/Grossly Intact
Msk: Right mid paravertebral muscles are tense
Anticipated Discharge: > 48 hours
Subjective/Interval History
-
Date of Service: August 01, 2024
Patient complains of right shoulder pain, right kidney pain. No fever, no vomiting.
Objective Data
-
Labs:
Laboratory Results
08/01/24
06:00
WBC Pending
Hgb Pending
Hct Pending
Plt Count Pending
Vital Signs:
Vital Signs
Temp Pulse Resp BP Pulse Ox
97.7 F 95 18 120/85 96
08/01/24 03:56 08/01/24 03:56 08/01/24 03:56 08/01/24 03:56 08/01/24 03:56
I&O
07/31/24 08/01/24 08/02/24
06:59 06:59 06:59
Intake Total 2880 / 2880
Output Total 1625 / 1625 5750 / 5750
Balance -1625 / -665 -2870 / -2870
[2024-08-01] MEDS: ZOFRAN 4 MG IV ×2 (07:59→20:43)
[2024-08-01] MEDS: LASIX 40 MG PO ×2 (07:59→15:20)
[2024-08-01] MEDS: NORVASC 5 MG PO (07:59)
[2024-08-01] MEDS: TOPROL XL 25 MG PO ×2 (07:59→20:41)
[2024-08-01] MEDS: LIDOCAINE 4% PATCH 1 PATCH TOPICAL (07:59)
--- NOTE | 2024-08-01 08:00 | W.PN.URO.CBU ---
Today's Communication / Plan
-
- Hold Xarelto (indefinitely for now given severity of bleeding)
- Continue CBI to keep urine clot-free and light pink/clear
- NPO
- To OR today for cysto/clot resection and evacuation/fulguration
- Trend H/H
D/w patient and spouse.
Assessment / Plan
-
Right renal collecting system mass and bleeding
Right hydroureteronephrosis
Hematuria w/ clot retention
07/31: CT Urogram reviewed w/ patient and spouse
- 8 cm clot burden w/n bladder, Herrera balloon in place, enlarged prostate gland.
- Right hydroureteronephrosis down to proximal right ureter w/ intermediate density >4 cm collecting system mass - suspicious for upper tract urothelial carcinoma.
Diagnosis
-
Date of Service: August 01, 2024
-
Patient Diagnosis:
Right renal collecting system mass and bleeding
Right hydroureteronephrosis
Hematuria w/ clot retention
Subjective
-
Notes intermittent bladder spasms from CBI and clot burden within bladder (noted on CT imaging).
NPO since midnight for OR today.
Increased indigestion o/n.
Objective
-
Vital Signs
Temp Pulse Resp BP Pulse Ox
97.7 F 95 18 120/85 96
08/01/24 03:56 08/01/24 03:56 08/01/24 03:56 08/01/24 03:56 08/01/24 03:56
Intake and Output
07/31/24 08/01/24 08/02/24
06:59 06:59 06:59
Intake Total 2880 / 2880
Output Total 1625 / 1625 5750 / 5750
Balance -1625 / -665 -2870 / -2870
Intake:
Oral fluids 288 / 288
Output:
Urine, Voided 200 / 200
True Urine Output from CBI 1625 / 1625 5550 / 5550
Other:
Number of approximated MODERATE 3
amounts of urine
Laboratory Results
07/31/24 06:53
Physical Exam
-
General - well developed, well nourished, visibly uncomfortable
Abdomen - soft, non-tender, non-distended, no CVAT
Genitalia - normal, 3-way catheter w/ clear UOP on low rate CBI
Skin - warm & dry with no rash
Neuro - AOx3, no motor deficits
Extremities - no clubbing, no cyanosis, no edema
[2024-08-01] MEDS: ROXICODONE 5 MG PO (08:01)
[2024-08-01] MEDS: VALIUM INJECTION 2 MG IV ×3 (08:49→21:54)
--- NOTE | 2024-08-01 09:08 | W.SUR.PREOP ---
Pre-Operative Surgical Note
-
I have examined this patient prior to the performance of the scheduled procedure.
The patient's condition is unchanged from the time of the current History and
Physical and the patient is able to undergo the scheduled procedure.
Risks and potential complications of cystoscopy, clot evacuation/resection, fulguration, button vaporization reviewed in detail w/ patient - including but not limited to urosepsis, bleeding, ureteral/bladder injury, need for additional procedures,
incontinence.
Right collecting system bleeding has appeared to improve/cease given urine appearance on CBI, stable H/H, and hemodynamic stability - Xarelto held 48 hrs now.
Will plan to evacuate bladder clot burden in order to render patient catheter-free hopefully w/n 24 hrs after CBI initiated post-op.
Plan for diagnostic right URS/biopsy/fulguration/stent w/n 2-3 weeks as outpatient for definitive pathologic diagnosis.
[2024-08-01 09:31] LABS: Hematocrit 41.7 % (39.0-52.0); Hemoglobin 14.9 g/dL (13.0-18.0); Mean Corp Hgb Conc. 35.7 g/dL (33.0-37.0); Mean Corpuscular Hgb 29.6 pg (27.0-31.0); Mean Corpuscular Volume 82.7 fL (80.0-94.0); Mean Platelet Volume 9.8 fL (7.4-10.4); Platelet Count 262 10^3/uL (130-400); Red Blood Cell Count 5.04 10^6/uL (4.70-6.10); Red Cell Dist. Width 13.2 % (11.5-14.5); White Blood Cell Count 13.7 10^3/uL (4.8-10.8)
--- NOTE | 2024-08-01 13:34 | PTCARENOTE ---
Received pt from OR. Diaphoretic. Denies pain. VSS. surgical procedure aborted after pt had projectile vomiting. CXR and KUB Ordered at bedside.
--- NOTE | 2024-08-01 13:50 | W.PN.UPDATE ---
Update Note
Progress Note Update
Patient taken back to OR - but sat up and had massive emesis of brownish liquid requiring suction to clear oral cavity.
Patient did not require intubation - high O2 sats on RA.
[place] relief and more comfortable after emesis episode.
Due to indigestion and emesis episode prior to induction, will postpone surgery until tomorrow 08/02 after discussion w/ anesthesiologist.
Plan:
- KUB/CXR ordered
- Transfer to post-op floor
- Continue CBI low to medium drip to keep urine light pink
- H/H increased today, Cr WNL - indicating no obvious continued right intrarenal bleeding
- NPO@MN
- OR tomorrow 08/02
D/w spouse (Cielo).
D/w RN.
D/w Anesthesiologist.
[2024-08-01] MEDS: PROTONIX IV 40 MG IV (15:14)
[2024-08-01] MEDS: NSS (PRESERVATIVE FREE) 10 ML IV (15:14)
[2024-08-01] MEDS: NSS 1000 IV (16:32)
[2024-08-01] MEDS: SENOKOT-S 2 TABLET PO (20:41)
[2024-08-01] MEDS: LIPITOR 40 MG PO (21:00)
[2024-08-02] VITALS (17 sets, daily range): BP systolic 98–117; BP diastolic 64–81; BMI 31.6
[2024-08-02 06:34] LABS: Hematocrit 40.5 % (39.0-52.0); Hemoglobin 14.1 g/dL (13.0-18.0); Mean Corp Hgb Conc. 34.8 g/dL (33.0-37.0); Mean Corpuscular Hgb 29.6 pg (27.0-31.0); Mean Corpuscular Volume 85.1 fL (80.0-94.0); Mean Platelet Volume 9.8 fL (7.4-10.4); Platelet Count 260 10^3/uL (130-400); Red Blood Cell Count 4.76 10^6/uL (4.70-6.10); Red Cell Dist. Width 12.8 % (11.5-14.5); White Blood Cell Count 12.1 10^3/uL (4.8-10.8)
[2024-08-02] MEDS: TOPROL XL 25 MG PO ×2 (07:49→17:32)
[2024-08-02] MEDS: LASIX 40 MG PO (07:49)
[2024-08-02] MEDS: NORVASC 5 MG PO (07:49)
[2024-08-02] MEDS: NSS (PRESERVATIVE FREE) 10 ML IV (07:50)
[2024-08-02] MEDS: PROTONIX IV 40 MG IV (07:50)
[2024-08-02] MEDS: LIDOCAINE 4% PATCH 1 PATCH TOPICAL (07:53)
[2024-08-02] MEDS: SENOKOT-S PO (07:53)
[2024-08-02] MEDS: VALIUM INJECTION 2 MG IV ×2 (08:04→14:27)
--- NOTE | 2024-08-02 08:33 | W.PN.HOSP.TC ---
Today's Communication/Plan
-
NPO for OR today
Assessment / Plan
Assessment / Plan
HPI: 69M HX Xarelto for Paroxysmal AF ,on ASA pw acute onset of blood in the urine just started a couple of hour ago.
S/p recent right rotator cuff surgery and just started back on his Xarelto on the
#Acute hematuria
#Right renal pelvis density
Appreciate urology input, hold Xarelto, continue CBI
CT Urogram shows 4.5 cm right renal pelvis density, suspicious for tumor
plan was for OR 08/01 for cysto/clot resection and evacuation/fulguration but patient with emesis pre-OR; therefore surgery delayed to today
-Hg stable
-NPO until procedure
Emesis
-s/p KUB - nonspecific bowel gas pattern with no evidence of obstruction
#Persistent atrial fibrillation
Appreciate cardiology input, continue metoprolol succinate for rate control
Hold Xarelto due to hematuria, resume when cleared by urology
#Benign essential hypertension
Continue amlodipine 5 mg daily, metoprolol succinate, Lasix
#Chronic heart failure with a preserved ejection fraction
Continue Lasix
#Hyperlipidemia
Continue statin
#Recent right shoulder replacement
Pain meds, outpatient follow-up with Ortho
#Right mid back pain
#Right kidney pain
Likely from the right hydronephrosis and mild right perinephric edema from the tumor
Lidocaine patch, pain meds, Tylenol as needed
#Hyperlipidemia
Continue statin
DVT prophylaxis�SCDs secondary to hematuria
Full code
Total time spent to see the patient on the floor, examine the patient, review data and lab results, discuss treatment plan with patient, nursing staff around 50 minutes.
Anticipated Discharge: 24 - 48 hours
Subjective/Interval History
-
Date of Service: August 02, 2024
denies nausea
stating he wants to leave the hospital
no chest pain or shortness of breath
Objective Data
-
Labs:
Laboratory Results
08/02/24
06:11
WBC 12.1 H
Hgb 14.1
Hct 40.5
Plt Count 260
Vital Signs:
Vital Signs
Temp Pulse Resp BP Pulse Ox
98.6 F 96 19 107/65 97
08/02/24 07:24 08/02/24 07:49 08/02/24 07:24 08/02/24 07:49 08/02/24 07:24
I&O
08/01/24 08/02/24 08/03/24
06:59 06:59 06:59
Intake Total 2880 / 2880 1320 / 1320
Output Total 5750 / 5750 2500 / 2500
Balance -2870 / -2870 -1180 / -1180
Review of Systems
-
History Source: Patient
All other systems: Reviewed and negative
Physical Exam
-
General: No Apparent Distress
HEENT: PERRLA
Respiratory: Clear to Auscultation; Negative Wheezes
Cardiac: Regular Rhythm and S1/S2
GI: Soft and Nontender
Genito-urinary: Other (hematuria; CBI on-going)
Musculoskeletal: No Edema
Skin: Warm and Dry; Negative Rash
Neuro: AO x 3
Psych: Calm
Data Reviewed
-
Diagnostic Radiology: Report Reviewed by me
Labs: Labs Reviewed by me
[2024-08-02 10:38] LABS: Blood Urea Nitrogen 23 mg/dl (9-20); Calcium 9.1 mg/dl (8.4-10.2); Carbon Dioxide 31 mmol/L (22-30); Chloride 97 mmol/L (98-107); Estimated Creatinine Clearance 71 ml/min; Glucose 101 mg/dl (70-99); Magnesium 2.2 mg/dl (1.6-2.3); Potassium 4.3 mmol/L (3.5-5.1); Sodium 137 mmol/L (135-145); eGFR 59.47
--- NOTE | 2024-08-02 11:41 | W.IMMPOSTOP ---
Surgical Immed Post Op Note
-
Primary Surgeon: Deisi
Pre-op Diagnosis:
1. Gross hematuria with clot retention
2. Right hydroureteronephrosis (down to proximal left ureter)
3. Right collecting system mass w/ intratrenal bleeding
Post-op Diagnosis: Same
Procedure Performed:
1. Cystoscopy and clot evacuation
2. Button fulguration of bladder urothelium
3. Button vaporization TURP
Anesthesia Type: GETA
Specimen / Cultures: None/None
Estimated Blood Loss: 2 cc (>100 cc old clot evacuated)
Drains: 22Fr 3-way Herrera catheter (30 cc in balloon)
Complications: None
Operative Findings:
1. Large organized clot burden within bladder evacuated w/ aggressive Devyn syringe irrigation.
2. Patchy cystitis of posterior and right lateral bladder wall - fulgurated w/ button electrode.
3. Mild oozing at vesicoprostatic junction - button vaporization of proximal prostatic urethra and lateral lobes.
4. Bilateral UOs in orthotopic position and uninvolved on final cysto - no bloody efflux or clot passage noted from right UO.
[2024-08-02] MEDS: DETROL LA 4 MG PO (12:30)
--- NOTE | 2024-08-02 13:10 | PTCARENOTE ---
Pt returned from PACU in bed. CBI infusing per order, light pink output draining. Telemetry maintained. Pt verbalized understanding to ring for assistance. Bed locked and in the lowest position, safety maintained. Oriented to room and call russell,
spouse at bedside.
--- NOTE | 2024-08-02 16:43 | PTCARENOTE ---
Addendum entered by Tarah Iverson, RN 08/02/24 17:35:
HR continues to be erratic, 110s-140s in afib. Pt remains asymptomatic, offering no complaints, 2000 metoprolol given early per Dr Hedrick. Will continue to monitor.
Original Note:
Pt tachycardic, HR intermittently going into 120s, not sustaining. Pt laying in bed offering no complaints. Dr Hedrick notified. Care ongoing at this time.
[2024-08-02] MEDS: SENOKOT-S 2 TABLET PO (20:11)
[2024-08-02] MEDS: LIPITOR 40 MG PO (22:11)
[2024-08-03 02:53] VITALS: BP 109/74
[2024-08-03 07:11] LABS: Hematocrit 39.8 % (39.0-52.0); Hemoglobin 14.3 g/dL (13.0-18.0); Mean Corp Hgb Conc. 35.9 g/dL (33.0-37.0); Mean Corpuscular Hgb 30.8 pg (27.0-31.0); Mean Corpuscular Volume 85.6 fL (80.0-94.0); Mean Platelet Volume 10.1 fL (7.4-10.4); Platelet Count 274 10^3/uL (130-400); Red Blood Cell Count 4.65 10^6/uL (4.70-6.10); Red Cell Dist. Width 12.6 % (11.5-14.5); White Blood Cell Count 12.8 10^3/uL (4.8-10.8)
--- NOTE | 2024-08-03 07:25 | W.PN.URO.CBU ---
Today's Communication / Plan
-
D/c Herrera catheter (ordered)
Voiding trial this AM
Pyridium 200 mg x1 (ordered)
Hold Xarelto on d/c - will need sooner outpatient F/U with Cardiology
F/U with Dr. Lipscomb in 1 week to discuss outpatient imaging and diagnostic URS/biopsy/stent for right renal mass
Assessment / Plan
-
Right renal collecting system mass and bleeding
Right hydroureteronephrosis
Hematuria w/ clot retention
07/31: CT Urogram reviewed w/ patient and spouse
- 8 cm clot burden w/n bladder, Herrera balloon in place, enlarged prostate gland.
- Right hydroureteronephrosis down to proximal right ureter w/ intermediate density >4 cm collecting system mass - suspicious for upper tract urothelial carcinoma.
08/02: s/p cystoscopy, clot evacuation, button fulguration of bladder, partial button vaporization TURP
Diagnosis
-
Date of Service: August 03, 2024
-
Patient Diagnosis:
Right renal collecting system mass and bleeding
Right hydroureteronephrosis
Hematuria w/ clot retention
08/02: s/p cystoscopy, clot evacuation, button fulguration of bladder, partial button vaporization TURP
Subjective
-
Urine clear in tubing on minimal CBI drip.
Denies bladder spasms or urethral pain.
Having breakfast during our conversation this AM.
Objective
-
Vital Signs
Temp Pulse Resp BP Pulse Ox
98 F 88 19 110/78 98
08/03/24 07:40 08/03/24 07:40 08/03/24 07:40 08/03/24 07:40 08/03/24 07:40
Intake and Output
08/02/24 08/03/24 08/04/24
06:59 06:59 06:59
Intake Total 1320 / 1320 1940 / 1940
Output Total 2500 / 2500 1800 / 1800
Balance -1180 / -1180 140 / 140
Intake:
Oral fluids 720 / 720 1640 / 1640
IV fluids (Total) 600 / 600 300 / 300
Normosol 300 / 300
Output:
Urine, Voided 1100 / 1100
True Urine Output from CBI 1400 / 1400 1800 / 1800
Laboratory Results
08/03/24 06:07
08/03/24 06:07
Physical Exam
-
General - well developed, well nourished, no acute distress
Abdomen - soft, non-tender, non-distended
Genitalia - normal, 3-way catheter w/ clear urine in tubing on minimal CBI drip
Skin - warm & dry with no rash
Neuro - AOx3, no motor deficits
Extremities - no clubbing, no cyanosis, no edema
Counseling
-
D/w patient and spouse.
D/w RN.
D/w Dr. Hedrick.
Care Review
Data Reviewed
Discussed with: Hospitalist, Nursing and Family
CT Scan: Report Pers Reviewed and Image Pers Reviewed
[2024-08-03 07:28] LABS: Blood Urea Nitrogen 31 mg/dl (9-20); Calcium 9.3 mg/dl (8.4-10.2); Carbon Dioxide 29 mmol/L (22-30); Chloride 96 mmol/L (98-107); Estimated Creatinine Clearance 77 ml/min; Glucose 122 mg/dl (70-99); Potassium 4.4 mmol/L (3.5-5.1); Sodium 136 mmol/L (135-145); eGFR > 60.00
[2024-08-03 07:40] VITALS: BP 110/78
[2024-08-03] MEDS: TOPROL XL 25 MG PO (07:47)
[2024-08-03] MEDS: NSS (PRESERVATIVE FREE) 10 ML IV (07:47)
[2024-08-03] MEDS: PROTONIX IV 40 MG IV (07:47)
[2024-08-03] MEDS: NORVASC 5 MG PO (07:47)
[2024-08-03] MEDS: LIDOCAINE 4% PATCH 1 PATCH TOPICAL (07:50)
[2024-08-03] MEDS: SENOKOT-S PO (07:50)
[2024-08-03] MEDS: Pyridium 200 MG PO (08:43)
--- NOTE | 2024-08-03 09:21 | W.PN.HOSP.TC ---
Today's Communication/Plan
-
OK for DC today
Assessment / Plan
Assessment / Plan
HPI: 69M HX Xarelto for Paroxysmal AF ,on ASA pw acute onset of blood in the urine just started a couple of hour ago.
S/p recent right rotator cuff surgery and just started back on his Xarelto on the
08/02/24
Pre-op Diagnosis:
1. Gross hematuria with clot retention
2. Right hydroureteronephrosis (down to proximal left ureter)
3. Right collecting system mass w/ intratrenal bleeding
Post-op Diagnosis: Same
Procedure Performed:
1. Cystoscopy and clot evacuation
2. Button fulguration of bladder urothelium
3. Button vaporization TURP
#Acute hematuria
#Right renal pelvis density
Appreciate urology input, hold Xarelto, continue CBI
CT Urogram shows 4.5 cm right renal pelvis density, suspicious for tumor
s/p OR 08/02 (procedure above)
-Hg stable
Emesis 08/01
-s/p KUB - nonspecific bowel gas pattern with no evidence of obstruction
#Persistent atrial fibrillation
Appreciate cardiology input, continue metoprolol succinate for rate control
Hold Xarelto until follow up appointments - patient understands risk versus benefits
#Benign essential hypertension
Continue amlodipine 5 mg daily, metoprolol succinate, Lasix
#Chronic heart failure with a preserved ejection fraction
Continue Lasix
#Hyperlipidemia
Continue statin
#Recent right shoulder replacement
Pain meds, outpatient follow-up with Ortho
#Right mid back pain
#Right kidney pain
-now resolved
#Hyperlipidemia
Continue statin
DVT prophylaxis�SCDs secondary to hematuria
Full code
Total time spent to see the patient on the floor, examine the patient, review data and lab results, discuss treatment plan with patient, nursing staff around 50 minutes.
Anticipated Discharge: Today
Subjective/Interval History
-
Date of Service: August 03, 2024
feeling better
pain resolved
still waiting to urinate
Objective Data
-
Labs:
Laboratory Results
08/03/24
06:07
WBC 12.8 H
Hgb 14.3
Hct 39.8
Plt Count 274
Sodium 136
Potassium 4.4
Chloride 96 L
Carbon Dioxide 29
BUN 31 H
Creatinine 1.2
Glucose 122 H
Calcium 9.3
Vital Signs:
Vital Signs
Temp Pulse Resp BP Pulse Ox
98 F 88 19 110/78 98
08/03/24 07:40 08/03/24 07:40 08/03/24 07:40 08/03/24 07:40 08/03/24 07:40
I&O
08/02/24 08/03/24 08/04/24
06:59 06:59 06:59
Intake Total 1320 / 1320 1940 / 1940
Output Total 2500 / 2500 1800 / 1800
Balance -1180 / -1180 140 / 140
Review of Systems
-
History Source: Patient
All other systems: Reviewed and negative
Physical Exam
-
General: No Apparent Distress
HEENT: PERRLA
Respiratory: Clear to Auscultation; Negative Wheezes
Cardiac: Regular Rhythm and S1/S2
GI: Soft and Nontender
Musculoskeletal: No Edema
Skin: Warm and Dry; Negative Rash
Neuro: AO x 3
Psych: Calm
Data Reviewed
-
Diagnostic Radiology: Report Reviewed by me
Labs: Labs Reviewed by me
--- NOTE | 2024-08-03 09:26 | W.DS.TRANS ---
DC Summary - Quantitative Software Engineer
-
Discharge Instructions:
Discharge Diagnosis/Procedures Right collecting system hemorrhage, gross
hematuria with clot retention s/p cysto/clot
evac/button vaporization prostate (08/02)
Diet Regular
Activity No strenuous activity
Additional Activity No strenuous lifting, exercise, or bike/
motorcycle riding x7 days
Driving Restrictions No driving for 24 hours
Bathing Restrictions None
Blood Work n/a
Wound Care n/a
Instructions:
Stand-Alone Forms:
Changes to Home Medications: Yes
Discharge Medications:
DC Medications w/original date entered in [email or web address]
furosemide 40 mg tablet 40 mg PO BID Fluid retention/Swelling 10/04/20
amlodipine 5 mg tablet (Norvasc) 5 mg PO DAILY Blood pressure 01/04/22
atorvastatin 40 mg tablet (Lipitor) 40 mg PO HS High cholesterol 01/04/22
metoprolol succinate 25 mg tablet,extended release 24 hr 25 mg PO BID 07/19/22
rivaroxaban 20 mg tablet (Xarelto) 20 mg PO HS 07/30/24
lidocaine 4 % topical patch 1 patch topical DAILY #14 ea 08/03/24
Home Medication Changes
hold Xarelto, Script for lidocaine patch
Pending Results: No
--- NOTE | 2024-08-03 10:06 | CM ---
Pt for discharge today pending void
Has ride home with family member
Discussed IMM
Plan - anticipate home no needs
[2024-08-03 11:22] VITALS: BP 118/87
--- NOTE | 2024-08-03 11:48 | PTCARENOTE ---
Pt ok to drive himself home per Dr Hedrick and Dr Lipscomb. Pt informed RN his will drive him home.
--- NOTE | 2024-08-03 13:16 | W.DCSUMMARY ---
Discharge Summary
Discharge Data
Date of Admission: 07/30/24
Date of Discharge: 08/03/24
-
Pending Results: No
Hospital Course
Discharging Physician : Dr. Tess Hedrick
Disposition : Home
Primary care physician : Dr. Sal Kaplan
Principal Discharge diagnosis : Right collecting system hemorrhage, gross hematuria with clot retention s/p cysto/clot evac/button vaporization prostate (08/02)
Hospital Course :
Mr. Channing Elaine is a 69 yo man with hx paroxysmal afib on Xarelto, GERD, HTN, HLD, recent right rotator cuff surgery presents to the ER with hematuria. Triage vitals stable, labs with Hg 14.8. He was initiated on CBI, Xarelto held and was
admitted to medicine with Urology consulting.
CT Urogram with findings suspicious for upper tract urothelial carcinoma. CBI continued, OR delayed from 08/01 given nausea/vomiting and on 08/02 proceeded with cysto/clot evacuation/ button fulguration of bladder urothelium and button vaporization
TURP.
Patient did well post-op. Voiding trial took place following day. He is told to hold Xarelto until further discussions from Dr. Lipscomb. He has follow up with ortho and cardiology this month.
Time spent on discharge was 35 minutes.
Important imaging findings :
CT UROGRAPHY 07/31/24
IMPRESSION:
1). There is intermediate density (74 Hounsfield units) extending over a 4.5 cm length in the right renal pelvis and proximal right ureter.
This finding is suspicious for tumor and cystoscopy would be useful for further evaluation.
2). There is associated delayed function on the right with mild right hydronephrosis and mild right perinephric edema without associated dilatation of the ureter distal to the suspected area of tumor.
3).There is an 8 cm soft tissue mass in the urinary bladder which more likely is blood clot than tumor.
4). There are left-sided renal cysts measuring up to 8 mm
5). Prostatomegaly
6). Multilevel degenerative disc disease
Procedure findings :
08/02/24
Pre-op Diagnosis:
1. Gross hematuria with clot retention
2. Right hydroureteronephrosis (down to proximal left ureter)
3. Right collecting system mass w/ intratrenal bleeding
Post-op Diagnosis: Same
Procedure Performed:
1. Cystoscopy and clot evacuation
2. Button fulguration of bladder urothelium
3. Button vaporization TURP
Discharge Plan
-
Patient Disposition: Home (Routine Discharge)
Discharge Diagnosis/Procedures: Right collecting system hemorrhage, gross hematuria with clot retention s/p cysto/clot evac/button vaporization prostate (08/02)
Condition: Good
Diet: Regular
Activity: No strenuous activity
Additional Activity: No strenuous lifting, exercise, or bike/motorcycle riding x7 days
Driving Restrictions: No driving for 24 hours
Bathing Restrictions: None
Blood Work: n/a
Wound Care: n/a
Activity Restrictions/Additional Instructions:
Follow up with Orthopedic Surgeon and Raw Stock Machine Feeder as planned
Referrals:
Stewatr Lipscomb MD [Active] - (Please call [facility] to schedule a preop visit to discuss outpatient imaging and an outpatient diagnostic procedure (scope of right kidney) as discussed with Dr. Lipscomb.)
Sal Kaplan MD [Family Provider] - in less than 1 week
Additional Discharge Medication Instructions: Hold Xarelto until told OK to resume by Dr. Lipscomb
Prescriptions:
New
lidocaine 4 % Adhesive Patch,Medicated
1 patch topical DAILY Qty: 14 0RF
Continued
furosemide 40 MG tablet
40 mg PO BID
atorvastatin [Lipitor] 40 MG tablet
40 mg PO HS
amlodipine [Norvasc] 5 MG tablet
5 mg PO DAILY
metoprolol succinate 25 mg Tablet Extended Release 24 Hr
25 mg PO BID
Held
Xarelto 20 mg tablet
20 mg PO HS
Hold Instructions: Resume on 08/13/24. Resume when OK'd by Dr. Lipscomb
Discharge Orders:
Discharge Patient (As Directed); Ordered 08/03/24
Ordered By: Tess Hedrick
Discharge Date and Time
Discharge Date/Time: 08/03/24 11:45
Print Language: GERMAN
== END 2024-08-03 11:45 | disposition home or self-care (01) | DRG 663 ==
LOC: 2 SOUTH 21:15
PROVIDERS: Emergency Medicine; Family Medicine; ADMITTING PHYSICIAN Internal Medicine; ATTENDING PHYSICIAN Student in an Organized Health Care Education/Training Program; CONSULT PHYSICIAN Surgery; EMERGENCY PHYSICIAN Emergency Medicine; FAMILY PHYSICIAN Family Medicine; OTHER PHYSICIAN Internal Medicine Cardiovascular Disease
PROC: 0TCB8ZZ Extirpation of Matter from Bladder, Via Natural or Artificial Opening Endoscopic (ICD-10-PCS; 2024-08-02)
PROC: 0W3R8ZZ Control Bleeding in Genitourinary Tract, Via Natural or Artificial Opening Endoscopic (ICD-10-PCS; 2024-08-02)
PROC: 0V508ZZ Destruction of Prostate, Via Natural or Artificial Opening Endoscopic (ICD-10-PCS; 2024-08-02)
DX: N30.91 Cystitis, unspecified with hematuria (principal); I48.19 Other persistent atrial fibrillation; I50.32 Chronic diastolic (congestive) heart failure; N13.39 Other hydronephrosis; E78.00 Pure hypercholesterolemia, unspecified; I11.0 Hypertensive heart disease with heart failure; G47.33 Obstructive sleep apnea (adult) (pediatric); K21.9 Gastro-esophageal reflux disease without esophagitis; R11.10 Vomiting, unspecified; N40.1 Benign prostatic hyperplasia with lower urinary tract symptoms; R33.8 Other retention of urine; N28.1 Cyst of kidney, acquired; E66.09 Other obesity due to excess calories; Z68.31 Body mass index [BMI] 31.0-31.9, adult; Z96.611 Presence of right artificial shoulder joint; Z88.8 Allergy status to other drugs, medicaments and biological substances; Z88.0 Allergy status to penicillin; Z86.73 Personal history of transient ischemic attack (TIA), and cerebral infarction without residual deficits; Z79.01 Long term (current) use of anticoagulants; Z79.899 Other long term (current) drug therapy
CPT/HCPCS: 51702; 51798; 71045; 74018; 74178; 80048; 80053; 81003; 81015; 83735; 85025; 85027; 85730; 93005; 99285; Q9967

== ENCOUNTER → 2024-08-17 12:30 | Outpatient (REF) | payer OTHER, SELFPAY | LOC: HWRAD 12:30 | PROVIDERS: ATTENDING PHYSICIAN Surgery; FAMILY PHYSICIAN Family Medicine | DX: N28.89 Other specified disorders of kidney and ureter (principal) | CPT/HCPCS: 74178; Q9967 ==

== ENCOUNTER 2024-08-19 18:00 | Outpatient (RCR) | payer OTHER, SELFPAY | END 2024-08-19 23:59 | disposition home or self-care (01) | LOC: RPT 18:00 | PROVIDERS: ATTENDING PHYSICIAN Orthopaedic Surgery Hand Surgery; FAMILY PHYSICIAN Family Medicine | DX: Z47.89 Encounter for other orthopedic aftercare (principal); Z73.6 Limitation of activities due to disability; M25.511 Pain in right shoulder; M62.81 Muscle weakness (generalized) | CPT/HCPCS: 97110; 97140; 97161 ==

== ENCOUNTER 2024-08-30 06:18 | Day surgery (SDC) | payer OTHER, SELFPAY ==
[2024-08-30] VITALS (8 sets, daily range): BP systolic 106–123; BP diastolic 76–91; BMI 30.1
[2024-08-30] MEDS: NORMOSOL-R/PLASMALYTE-A 1000 IV (11:53)
[2024-08-30] MEDS: Pyridium 200 MG PO (15:01)
[2024-08-30] MEDS: DETROL LA 2 MG PO (15:02)
== END 2024-08-30 15:20 | disposition home or self-care (01) ==
LOC: SDS 06:18
PROVIDERS: ATTENDING PHYSICIAN Surgery
DX: N28.89 Other specified disorders of kidney and ureter (principal); R31.9 Hematuria, unspecified
CPT/HCPCS: 52332; 74018; 76000; 88112; A4300; C1769; C1894; C2617

== ENCOUNTER 2024-09-30 16:46 | Outpatient (RCR) | payer OTHER, SELFPAY | END 2024-09-30 23:59 | disposition home or self-care (01) | LOC: RPT 16:46 | PROVIDERS: ATTENDING PHYSICIAN Orthopaedic Surgery Hand Surgery; FAMILY PHYSICIAN Family Medicine | DX: Z47.89 Encounter for other orthopedic aftercare (principal); Z73.6 Limitation of activities due to disability; M25.511 Pain in right shoulder; M62.81 Muscle weakness (generalized) | CPT/HCPCS: 97110; 97140 ==

== ENCOUNTER 2024-10-19 11:30 | Inpatient (IN) | payer OTHER, SELFPAY ==
[2024-10-19 11:49] VITALS: BP 122/80
--- NOTE | 2024-10-19 11:53 | W.PN.CARDCBS ---
Addendum entered and electronically signed by Aguila Jeong MD 10/19/24 14:07:
Attending addendum: Patient seen and examined. PA note reviewed as well as discussions held with Dr. Drake. Briefly, This is a 69 y/o gentleman with a PMH notable for symptomatic atrial fibrillation who is now admitted for Tikosyn loading for
management of his symptomatic atrial fibrillation. The patient was seen by ROXY Lane who astutely noted a history of QT prolongation with prior treatment of Tikosyn. We held discussions with Dr. Drake who felt as if low dose Tikosyn may
be appropriate.
Re Afib ablation and Tikosyn: He apparently had been admitted 08/2012 with afib for Tikosyn loading. He developed QTc prolongation. Cardioversion was undertaken but he was discharged without Tikosyn. On 10/19/12 he underwent successful PVI. He
developed recurring atrial fibrillation and a second PVI was undertaken 10/2020.
ECG: Afib with QTc 477 msec
RECOMMENDATIONS:
-We will start Tikosyn 125mg po bid with close monitoring of QT/QTc.
-EP involved with decision making
-Will need close monitoring of QT
-IF QT prolongs any further then would consider change to amiodarone
Original Note:
Today's Communication / Plan
-
tikosyn 125mcg Q12H
if QT prolongation noted, will stop tikosyn and transition to amiodarone
continue xarelto, toprol
continue po lasix
Impression / Plan
-
Please refer to office note dated 10/13/24
Primary Liquor Maker: Dr. La
Assessment:
Symptomatic paroxysmal atrial fibrillation
Presented for Tikosyn loading
Chronic OAC with xarelto
History of PVI 2011, 10/2020
s/p convergent/MAZE 05/2022
History of QTc prolongation on tikosyn in 2011
History of breakthrough on sotalol
Chronic HFpEF
R rotator cuff surgery 07/2024
History of bladder clots/hematuria with resolution 08/2024
HTN
HLD
HYUN on CPAP
ECHO 11/14/23: EF 60%, mild MAC, mild to moderate MR, dilated left atrium, dilated RV and atrium, mild TR, PASP 42 mmHg, ascending aorta 4 to 4.2 cm
Plan:
-Presented for elective Tikosyn loading in the setting of symptomatic paroxysmal atrial fibrillation. He is in A-fib with relatively controlled ventricular response at present
-He is noted to have history of QT prolongation on Tikosyn in 2011 resulting in discontinuation of medication. Reviewed with EP. Will plan to load with 125 mcg every 12 hours and if QT prolongs with this, would stop medication and transition to
amiodarone. He also has history of breakthrough on sotalol
-Continue xarelto, no missed doses in the last 4 weeks. Of note he does have history of cystoscopy procedure in August for hematuria which found bladder clots and he has not been noted to have recurrence of hematuria since that time.
-Plan for cardioversion 10/21 if remains in A-fib
-Continue outpatient Toprol
-Appears adequately compensated from volume standpoint. Continue p.o. Lasix
-Discussed with nursing
Progress Note - Liquor Maker
Subjective
Date of Service: October 19, 2024
Reports some fatigue with exertion
Physical Exam
Physical Exam
GEN: No distress, awake, alert, oriented x3
HEENT: supple, anicteric, mmm, eomi
LUNGS: CTA B/L, no wheezes/rales
CV: Irreg, S1/S2, no murmur
ABD: soft, BS+, NT/ND
EXT: No cyanosis, clubbing. trace edema of B/L LE
NEURO: Gross non-focal
SKIN: Warm, pink, dry. No rash
[2024-10-19 12:01] VITALS: BMI 30.9
--- NOTE | 2024-10-19 12:24 | PTCARENOTE ---
Rec'd Pt [id number] as a direct admit for Zakia. He is A,A+Ox3,denies pain. He is in a-Fib at rate in 80's.
[2024-10-19 12:51] LABS: % Basophils 0.5 % (0-2); % Eosinophils 2.5 % (0-6); % Immature Granulocytes 0.6 % (0-0.5); % Lymphocytes 17.9 % (20.5-51.1); % Neutrophils 69.5 % (42.2-75.2); Absolute Eosinophils 0.2 10^3/uL (0-0.7); Absolute Lymphocytes 1.1 10^3/uL (1.2-3.4); Absolute Monocytes 0.6 10^3/uL (0.1-0.6); Absolute Neutrophils 4.4 10^3/uL (1.4-6.5); Hematocrit 42.7 % (39.0-52.0); Hemoglobin 14.7 g/dL (13.0-18.0); Mean Corp Hgb Conc. 34.4 g/dL (33.0-37.0); Mean Corpuscular Volume 87.1 fL (80.0-94.0); Mean Platelet Volume 9.9 fL (7.4-10.4); Nucleated Red Blood Cells % 0 % (-); Platelet Count 247 10^3/uL (130-400); Red Cell Dist. Width 13.2 % (11.5-14.5); White Blood Cell Count 6.3 10^3/uL (4.8-10.8)
--- NOTE | 2024-10-19 13:26 | W.CARD.TIKOS ---
Initiate Tikosyn
-
I verify that the patient has not taken any verapamil (Isoptin/Calan), ketoconazole (Nizoral), cimetidine (Tagamet), trimethoprim (Trimpex), trimethoprim/sulfamethoxazole (Bactrim), megesterol (Megace), prochlorperazine (Compazine),
hydrochlorothiazide (HCTZ), dolutegravir (Tivicay) or any Class I or Class III anti-arrhythmic within the last three days
AND
I verify that the patient has not taken amiodarone within the last THREE months, or that the patient's amiodarone plasma concentration is <0.3 mcg/mL.
Does patient have a Ventricular Conduction Abnormality: No
I have assessed the baseline QTc interval (using QT for heart rate less than 60 bpm) and deemed the patient is appropriate for Dofetilide therapy. I understand that Tikosyn is contraindicated if the QTc is >440msec (500msec in patients with
ventricular conduction abnormalities).
Baseline QTc (in msec): 475
QTc interval is greater than 440msec without conduction abnormality OR greater than 500msec with a conduction abnormality, but acceptable to proceed per Cardiology attending.
Reason for Administration with Prolonged QTc: Other Atrial Arrhythmia
Ordering Physician: Aguila Jeong
[2024-10-19 13:30] LABS: ALT (SGPT) 22 U/L (0-50); AST (SGOT) 23 U/L (17-59); Albumin 4.2 g/dl (3.5-5.0); Alkaline Phosphatase 59 U/L (38-126); Blood Urea Nitrogen 22 mg/dl (9-20); Calcium 9.2 mg/dl (8.4-10.2); Carbon Dioxide 31 mmol/L (22-30); Chloride 99 mmol/L (98-107); Estimated Creatinine Clearance 121 ml/min; Glucose 119 mg/dl (70-99); Potassium 4.4 mmol/L (3.5-5.1); Sodium 142 mmol/L (135-145); Total Bilirubin 0.9 mg/dl (0.2-1.3); Total Protein 6.4 g/dl (6.3-8.2); eGFR > 60.00
--- NOTE | 2024-10-19 13:56 | CM ---
Addendum entered by Leah Pena 10/19/24 14:30:
Telephone call to [facility] ,([phone]) to check on co-pay for Dofetilide 125 mcg po bid. His co-pay would be $7.81 for a thirty day supply.
Original Note:
Reviewed chart. Met with Mr. Elaine to review discharge plans. He states prior to admission he resides with his spouse in a one story home with three steps to enter. He states prior to admission he was independent with ambulation and adls. He
states he has a CPAP Machine and no other DME in the home. He states he has a prescription plan and uses [facility]. He will need a script to [facility] for a three dy supply of Dofetilide to go home with him. Will check his co-pay and if
his pharmacy has Dofetilide in stock. Medical work-up in progress. The discharge plan is to return home with his spouse when medically stable.
[2024-10-19 14:00] LABS: TSH 0.39 uIU/ml (0.47-4.68)
[2024-10-19] MEDS: TIKOSYN 125 MCG PO (14:13)
[2024-10-19 14:43] LABS: Glycohemoglobin (HgbA1c) 5.4 % (4.0-5.6)
[2024-10-19 15:58] VITALS: BP 138/100
[2024-10-19] MEDS: LIPITOR 40 MG PO (17:41)
[2024-10-19] MEDS: XARELTO 20 MG PO (17:41)
[2024-10-19 19:20] VITALS: BP 122/91
[2024-10-19] MEDS: LASIX 40 MG PO (19:44)
[2024-10-19] MEDS: TOPROL XL 25 MG PO (19:45)
[2024-10-19 20:12] VITALS: BMI 30.9
--- NOTE | 2024-10-19 21:53 | PTCARENOTE ---
Received patient at change of shift. Afib on the monitor, HR in the 80s. Discussed plan of care for Tikosyn and EKG overnight, pt verbalizes understanding. Pts CPAP from home in room. No complaints from pt at this time, call russell within reach.
[2024-10-19 22:49] VITALS: BP 130/91
--- NOTE | 2024-10-19 23:11 | PTCARENOTE ---
Received patient at change of shift. Language line available on floor. Afib on the monitor, HR in the 80s. PRN Benadryl requested by pt for insomnia and administered as per JAN. Pt complains of 7/10 pain in R knee, PRN Tylenol administered as per
JAN. Michelle running as per protocol. Call russell within reach.
[2024-10-20] VITALS (7 sets, daily range): BP systolic 114–146; BP diastolic 86–105; BMI 30.7
[2024-10-20] MEDS: TIKOSYN 125 MCG PO ×3 (00:58→22:31)
[2024-10-20 03:35] LABS: Blood Urea Nitrogen 18 mg/dl (9-20); Calcium 9.2 mg/dl (8.4-10.2); Carbon Dioxide 27 mmol/L (22-30); Chloride 100 mmol/L (98-107); Estimated Creatinine Clearance 121 ml/min; Glucose 97 mg/dl (70-99); Hematocrit 43.5 % (39.0-52.0); Hemoglobin 14.8 g/dL (13.0-18.0); Mean Corpuscular Hgb 30.1 pg (27.0-31.0); Mean Corpuscular Volume 88.4 fL (80.0-94.0); Mean Platelet Volume 9.8 fL (7.4-10.4); Platelet Count 254 10^3/uL (130-400); Potassium 4.1 mmol/L (3.5-5.1); Red Blood Cell Count 4.92 10^6/uL (4.70-6.10); Red Cell Dist. Width 13.2 % (11.5-14.5); Sodium 139 mmol/L (135-145); White Blood Cell Count 6.6 10^3/uL (4.8-10.8); eGFR > 60.00
--- NOTE | 2024-10-20 08:48 | CM ---
Addendum entered by Leah Pena 10/20/24 09:17:
Telephone call to [facility] to check if they have Dofetilide 125 mcg in stock. [facility] has Dofetilide 125 mcg in stock.
Original Note:
Reviewed chart. Met with Mr. Elaine to review discharge plans. We reviewed his co-pay for Dofetilide of $7.81 a month. He is agreeable to the co-pay. Prior to admission he resides with his spouse in a one story home with three steps to enter.
Prior to admission he was independent with ambulation and adls. He has a CPAP Machine and no other DME in the home. He has a prescription plan and uses [facility]. He will need a three script of Dofetilide to go to [facility] so a three
day supply can go home with him. Medical work-up in progress. The discharge plan is to return home with his spouse when medically stable.
[2024-10-20] MEDS: NORVASC 2.5 MG PO (08:51)
[2024-10-20] MEDS: TOPROL XL 25 MG PO ×2 (08:51→19:47)
[2024-10-20] MEDS: FLOMAX 0.4 MG PO (08:51)
[2024-10-20] MEDS: LASIX 40 MG PO ×2 (08:51→19:47)
--- NOTE | 2024-10-20 09:22 | W.PN.CARDCBS ---
Addendum entered and electronically signed by Sai Drake MD 10/20/24 10:35:
Patient seen and examined
Agree with GEOFFREY Villagran's note and assessment
Agree with GEOFFREY Villagran's plan
Exam:
HEENT normocephalic atraumatic
JVP 6
Cor irregularly irregular
Lungs clear to station bilaterally
Abdomen soft nontender possible sounds
No extremity edema
Assessment:
Symptomatic paroxysmal atrial fibrillation
Presented for Tikosyn loading
Chronic OAC with xarelto
History of PVI 2011, 10/2020
s/p convergent/MAZE 05/2022
History of QTc prolongation on tikosyn in 2011
History of breakthrough on sotalol
Chronic HFpEF
R rotator cuff surgery 07/2024
History of bladder clots/hematuria with resolution 08/2024
HTN
HLD
HYUN on CPAP
ECHO 11/14/23: EF 60%, mild MAC, mild to moderate MR, dilated left atrium, dilated RV and atrium, mild TR, PASP 42 mmHg, ascending aorta 4 to 4.2 cm
Plan:
-tolerating tikosyn 125mcg Q12H with stable QTc. He is noted to have history of QT prolongation on Tikosyn in 2011 resulting in discontinuation of medication. if QTc prolongs, would stop tikosyn and transition to amiodarone
-remains in afib with adequate rate control.
-continue xarelto, no missed doses in last 4 weeks. Of note he does have history of cystoscopy procedure in August for hematuria which found bladder clots and he has not been noted to have recurrence of hematuria since that time.
-Plan for cardioversion 10/21 if remains in A-fib
-Continue outpatient Toprol
-Appears adequately compensated from volume standpoint. Continue p.o. Lasix
Original Note:
Today's Communication / Plan
-
continue tikosyn 125mcg Q12H
follow QTc
continue xarelto, toprol
for CV in AM
Impression / Plan
-
Please refer to office note dated 10/13/24
Primary Informatica Mdm Developer: Dr. La
Assessment:
Symptomatic paroxysmal atrial fibrillation
Presented for Tikosyn loading
Chronic OAC with xarelto
History of PVI 2011, 10/2020
s/p convergent/MAZE 05/2022
History of QTc prolongation on tikosyn in 2011
History of breakthrough on sotalol
Chronic HFpEF
R rotator cuff surgery 07/2024
History of bladder clots/hematuria with resolution 08/2024
HTN
HLD
HYUN on CPAP
ECHO 11/14/23: EF 60%, mild MAC, mild to moderate MR, dilated left atrium, dilated RV and atrium, mild TR, PASP 42 mmHg, ascending aorta 4 to 4.2 cm
Plan:
-tolerating tikosyn 125mcg Q12H with stable QTc. He is noted to have history of QT prolongation on Tikosyn in 2011 resulting in discontinuation of medication. if QTc prolongs, would stop tikosyn and transition to amiodarone
-remains in afib with adequate rate control.
-continue xarelto, no missed doses in last 4 weeks. Of note he does have history of cystoscopy procedure in August for hematuria which found bladder clots and he has not been noted to have recurrence of hematuria since that time.
-Plan for cardioversion 10/21 if remains in A-fib
-Continue outpatient Toprol
-Appears adequately compensated from volume standpoint. Continue p.o. Lasix
Progress Note - Inform[employer] Mdm Developer
Subjective
Date of Service: October 20, 2024
no CP, SOB, palpitations.
Objective
Labs:
10/20/24 02:47
10/20/24 02:47
Labs
Hgb 14.8 g/dL (13.0-18.0) 10/20/24 02:47
Hct 43.5 % (39.0-52.0) 10/20/24 02:47
Plt Count 254 10^3/uL (130-400) 10/20/24 02:47
Sodium 139 mmol/L (135-145) 10/20/24 02:47
Potassium 4.1 mmol/L (3.5-5.1) 10/20/24 02:47
BUN 18 mg/dl (9-20) 10/20/24 02:47
Creatinine 0.8 mg/dL (0.7-1.3) 10/20/24 02:47
Glucose 97 mg/dl (70-99) 10/20/24 02:47
Vital Signs and I&O:
Vital Signs
Temp Pulse Resp BP Pulse Ox
98.7 F 80 18 135/86 98
10/20/24 07:54 10/20/24 08:45 10/20/24 07:54 10/20/24 07:52 10/20/24 07:54
Vital Signs
Temp Pulse Resp BP Pulse Ox
98.7 F 80 18 135/86 98
10/20/24 07:54 10/20/24 08:45 10/20/24 07:54 10/20/24 07:52 10/20/24 07:54
Physical Exam
Physical Exam
GEN: No distress, awake, alert, oriented x3
HEENT: supple, anicteric, mmm, eomi
LUNGS: CTA B/L, no wheezes/rales
CV: Irreg, S1/S2, no murmur
ABD: soft, BS+, NT/ND
EXT: No cyanosis, clubbing. trace edema of B/L LE
NEURO: Gross non-focal
SKIN: Warm, pink, dry. No rash
[2024-10-20] MEDS: LIPITOR 40 MG PO (16:45)
[2024-10-20] MEDS: XARELTO 20 MG PO (16:46)
--- NOTE | 2024-10-20 18:33 | PTCARENOTE ---
No complaints during the day, A-Fib HR in the 90's at rest. Plan of care reviewed, call russell in reach
--- NOTE | 2024-10-20 20:53 | PTCARENOTE ---
Received patient at change of shift. Afib on the monitor, HR in the 100s. VSS. Discussed plan of care for the night including Tikosyn dose and EKG times, and NPO at midnight, pt verbalizes understanding. No complaints from pt at this time, call russell
within reach.
[2024-10-21 03:08] VITALS: BP 111/76
[2024-10-21 04:08] LABS: Blood Urea Nitrogen 18 mg/dl (9-20); Calcium 9.3 mg/dl (8.4-10.2); Carbon Dioxide 29 mmol/L (22-30); Chloride 99 mmol/L (98-107); Estimated Creatinine Clearance 121 ml/min; Glucose 96 mg/dl (70-99); Potassium 4.3 mmol/L (3.5-5.1); Sodium 139 mmol/L (135-145); eGFR > 60.00
[2024-10-21] MEDS: FLOMAX 0.4 MG PO (07:23)
[2024-10-21] MEDS: TOPROL XL 25 MG PO (07:23)
[2024-10-21] MEDS: NORVASC 2.5 MG PO (07:23)
[2024-10-21 07:27] VITALS: BP 117/81
[2024-10-21] MEDS: TIKOSYN 125 MCG PO (07:52)
--- NOTE | 2024-10-21 09:15 | ITS.CL.CARDI ---
Licensed Esthetician - Cardioversion
Cardioversion
Procedure Report:
Procedure: Direct current electrical cardioversion
Pre-operative diagnosis: Persistent atrial fibrillation
Post-operative diagnosis: Persistent atrial fibrillation status post DC cardioversion to sinus rhythm
Anesthesia: MAC
Attending Physician: Juan Carlos Jeter MD
Procedure Description: The patient was brought to the electrophysiology laboratory in the fasting state. Adherence to anticoagulation regimen was confirmed. Informed consent was obtained from the patient prior to the start of the procedure.
Electrodes were placed on the patient and connected to an external defibrillator. Monitoring of blood pressure, ECG tracings, and pulse oximetry was initiated. The pads were applied to the patient in the anterior and posterior positions. The patient
was sedated by the anesthesiologist. A 200 joule biphasic synchronized shock was delivered to the patient under MAC anesthesia. Sinus rhythm was successfully restored. The patient recovered uneventfully from MAC anesthesia. There were no immediate
post-procedure complications. The patient left the lab in good condition. The attending physician was present throughout the entire procedure.
Impression: Successful direct current cardioversion with presybeterian of sinus rhythm after one 200 joule biphasic synchronized shock.
[2024-10-21] MEDS: LASIX 40 MG PO (10:08)
--- NOTE | 2024-10-21 11:02 | W.PN.CARDCBS ---
Addendum entered and electronically signed by Susie Villagran PA-C 10/21/24 14:49:
[id number]
Addendum entered and electronically signed by Sai Drake MD 10/21/24 12:46:
Patient seen and examined
Agree with GEOFFREY Villagran's note and assessment
Agree with GEOFFREY Villagran's plan
I also saw and examined the patient post cardioversion in holding area
Exam:
ECG reviewed with QTc less than 500 ms after dofetilide
Telemetry sinus rhythm
Cor regular no murmur
Oriented x 3
No acute distress
Nonfocal neurologically
Remainder as per GEOFFREY note
Assessment:
Symptomatic paroxysmal atrial fibrillation
Presented for Tikosyn loading
s/p successful CV 10/21/24
Chronic OAC with xarelto
History of PVI 2011, 10/2020
s/p convergent/MAZE 05/2022
History of QTc prolongation on tikosyn in 2011
History of breakthrough on sotalol
Chronic HFpEF
R rotator cuff surgery 07/2024
History of bladder clots/hematuria with resolution 08/2024
HTN
HLD
HYUN on CPAP
ECHO 11/14/23: EF 60%, mild MAC, mild to moderate MR, dilated left atrium, dilated RV and atrium, mild TR, PASP 42 mmHg, ascending aorta 4 to 4.2 cm
Plan:
-Underwent successful cardioversion 10/21/2024
-QTc stable in sinus rhythm on Tikosyn 125 mcg every 12 hours. Of note he has history of QT prolongation on Tikosyn in 2011 resulting in discontinuation of medication.
-Continue Xarelto
-Continue outpatient Toprol
-Continue p.o. Lasix 40 mg twice daily
-Plan for discharge to home today
-Outpatient cardiac follow-up arranged
-Discussed with nursing
Original Note:
Today's Communication / Plan
-
s/p successful CV
QTc stable in SR on tikosyn 125mcg Q12H
ok for DC to home
OP cardiac follow up arranged
total DC time >30 minutes
Impression / Plan
-
Please refer to office note dated 10/13/24
Primary Health Club Manager: Dr. La
Assessment:
Symptomatic paroxysmal atrial fibrillation
Presented for Tikosyn loading
s/p successful CV 10/21/24
Chronic OAC with xarelto
History of PVI 10/2020
s/p convergent/MAZE 05/2022
History of QTc prolongation on tikosyn in 2011
History of breakthrough on sotalol
Chronic HFpEF
R rotator cuff surgery 07/2024
History of bladder clots/hematuria with resolution 08/2024
HTN
HLD
HYUN on CPAP
ECHO 11/14/23: EF 60%, mild MAC, mild to moderate MR, dilated left atrium, dilated RV and atrium, mild TR, PASP 42 mmHg, ascending aorta 4 to 4.2 cm
Plan:
-Underwent successful cardioversion 10/21/2024
-QTc stable in sinus rhythm on Tikosyn 125 mcg every 12 hours. Of note he has history of QT prolongation on Tikosyn in 2011 resulting in discontinuation of medication.
-Continue Xarelto
-Continue outpatient Toprol
-Continue p.o. Lasix 40 mg twice daily
-Plan for discharge to home today
-Outpatient cardiac follow-up arranged
-Discussed with nursing
Progress Note - Health Club Manager
Subjective
Date of Service: October 21, 2024
No issues overnight. Eager for discharge
Objective
Labs:
10/20/24 02:47
10/21/24 03:15
Labs
Hgb 14.8 g/dL (13.0-18.0) 10/20/24 02:47
Hct 43.5 % (39.0-52.0) 10/20/24 02:47
Plt Count 254 10^3/uL (130-400) 10/20/24 02:47
Sodium 139 mmol/L (135-145) 10/21/24 03:15
Potassium 4.3 mmol/L (3.5-5.1) 10/21/24 03:15
BUN 18 mg/dl (9-20) 10/21/24 03:15
Creatinine 0.8 mg/dL (0.7-1.3) 10/21/24 03:15
Glucose 96 mg/dl (70-99) 10/21/24 03:15
Vital Signs and I&O:
Vital Signs
Temp Pulse Resp BP Pulse Ox
98.3 F 92 20 117/81 98
10/21/24 07:27 10/21/24 07:30 10/21/24 07:27 10/21/24 07:27 10/21/24 10:44
Vital Signs
Temp Pulse Resp BP Pulse Ox
98.3 F 92 20 117/81 98
10/21/24 07:27 10/21/24 07:30 10/21/24 07:27 10/21/24 07:27 10/21/24 10:44
Intake & Output
10/19/24 10/20/24 10/21/24 10/22/24
07:59 07:59 07:59 07:59
Intake Total 1200 / 1200
Balance 1200 / 1200
Physical Exam
Physical Exam
GEN: No distress, awake, alert, oriented x3
HEENT: supple, anicteric, mmm, eomi
LUNGS: CTA B/L, no wheezes/rales
CV: Reg, S1/S2, no murmur
ABD: soft, BS+, NT/ND
EXT: No cyanosis, clubbing. trace edema of B/L LE
NEURO: Gross non-focal
SKIN: Warm, pink, dry. No rash
--- NOTE | 2024-10-21 11:03 | PTCARENOTE ---
Pt received this am in afib, rate in the 90's. Pt denies any chest pain, sob or palpations. Pt sent to the cardioversion and returned in SR.
--- NOTE | 2024-10-21 11:08 | W.DS.TRANS ---
DC Summary - [employer] Sales And Service Supervisor
-
Discharge Instructions:
Discharge Diagnosis/Procedures atrial fibrillation, tikosyn load, cardioversion
Diet Low Cholesterol,2 Gram Sodium
Activity As tolerated
Driving Restrictions No driving for 24 hours
Bathing Restrictions None
Instructions:
Stand-Alone Forms:
Changes to Home Medications: Yes
Discharge Medications:
DC Medications w/original date entered in [employer]
furosemide 40 mg tablet 40 mg PO BID Fluid retention/Swelling 10/04/20
amlodipine 5 mg tablet (Norvasc) 2.5 mg PO DAILY Blood pressure 01/04/22
atorvastatin 40 mg tablet (Lipitor) 40 mg PO QPM High cholesterol 01/04/22
metoprolol succinate 25 mg tablet,extended release 24 hr 25 mg PO BID Blood Pressure 07/19/22
tamsulosin 0.4 mg capsule 0.4 mg PO DAILY Urinary Issue 08/24/24
rivaroxaban 20 mg tablet (Xarelto) 20 mg PO QPM Blood Clot Prevention/Tx 10/19/24
dofetilide 125 mcg capsule 125 mcg PO Q12H #60 caps 10/20/24
Home Medication Changes
tikosyn is new
Pending Results: No
[2024-10-21 11:25] VITALS: BP 115/78
--- NOTE | 2024-10-21 12:08 | CM ---
Reviewed chart. Met with Mr. Elaine to review discharge plans. He states he is feeling better and maybe able to go home soon. Zane script sent to [facility] for the three day supply to go home with him. Prior to admission he resides with
his spouse in a one story home with three steps to enter. Prior to admission he was independent with ambulation and adls. He has a CPAP Machine at home and no other DME in the home. He has a prescription plan and uses [facility]. Medical
work-up in progress. The discharge plan is to return home with his spouse when medically stable.
--- NOTE | 2024-10-21 12:32 | PTCARENOTE ---
Pt discharged to home with his . Discharge instructions given and reviewed with good understanding.
[2024-10-22 03:40] LABS: Hepatitis C Antibody Negative (Negative)
== END 2024-10-21 12:35 | disposition home or self-care (01) | DRG 309 ==
LOC: IVU 11:30
PROVIDERS: Internal Medicine Cardiovascular Disease; Physician Assistant; ADMITTING PHYSICIAN Internal Medicine Cardiovascular Disease; FAMILY PHYSICIAN Family Medicine
PROC: 5A2204Z Restoration of Cardiac Rhythm, Single (ICD-10-PCS; 2024-10-21)
DX: I48.0 Paroxysmal atrial fibrillation (principal); I50.32 Chronic diastolic (congestive) heart failure; I11.0 Hypertensive heart disease with heart failure; E78.5 Hyperlipidemia, unspecified; G47.33 Obstructive sleep apnea (adult) (pediatric); Z79.01 Long term (current) use of anticoagulants; Z79.899 Other long term (current) drug therapy
CPT/HCPCS: 80048; 80053; 83036; 83735; 84443; 85025; 85027; 86803; 92960; 93005

== ENCOUNTER 2024-10-26 18:08 | Outpatient (RCR) | payer OTHER, SELFPAY | END 2024-10-26 23:59 | disposition home or self-care (01) | LOC: RPT 18:08 | PROVIDERS: ATTENDING PHYSICIAN Orthopaedic Surgery Hand Surgery; FAMILY PHYSICIAN Family Medicine | DX: Z47.89 Encounter for other orthopedic aftercare (principal); Z73.6 Limitation of activities due to disability; M25.511 Pain in right shoulder; M62.81 Muscle weakness (generalized) | CPT/HCPCS: 97110; 97140 ==

== ENCOUNTER 2024-11-11 18:27 | Outpatient (RCR) | payer OTHER, SELFPAY | END 2024-11-12 07:48 | disposition home or self-care (01) | LOC: RPT 18:27 | PROVIDERS: ATTENDING PHYSICIAN Orthopaedic Surgery Hand Surgery; FAMILY PHYSICIAN Family Medicine | DX: Z47.89 Encounter for other orthopedic aftercare (principal); Z73.6 Limitation of activities due to disability; M25.511 Pain in right shoulder; M62.81 Muscle weakness (generalized) | CPT/HCPCS: 97110; 97140 ==

== ENCOUNTER 2024-11-22 06:23 | Day surgery (SDC) | payer OTHER, SELFPAY | END 2024-11-22 11:13 | disposition home or self-care (01) | LOC: GI 06:23 | PROVIDERS: ATTENDING PHYSICIAN Specialist; FAMILY PHYSICIAN Family Medicine | DX: Z12.11 Encounter for screening for malignant neoplasm of colon (principal); K57.30 Diverticulosis of large intestine without perforation or abscess without bleeding; D12.3 Benign neoplasm of transverse colon; D12.2 Benign neoplasm of ascending colon; Z86.0101 Personal history of adenomatous and serrated colon polyps | CPT/HCPCS: 45385; 88305 ==

== ENCOUNTER → 2025-09-28 07:22 | Outpatient (REF) | payer OTHER, SELFPAY | LOC: RAD 07:22 | PROVIDERS: ATTENDING PHYSICIAN Surgery; FAMILY PHYSICIAN Family Medicine | DX: R31.9 Hematuria, unspecified (principal) | CPT/HCPCS: 76770 ==